=== PATIENT | female | born 1940 | race Caucasian/White ===

== ENCOUNTER → 2016-08-28 | Day surgery (SDC) | payer BC ==
[2016-08-22 10:11] VITALS: Ht 162.6 cm; Wt 97.7 kg
[~2016-08-28] VITALS: Ht 162.6 cm; Wt 97.7 kg
[~2016-08-28] MED LIST: ALBUTEROL HFA INHALER 8.5 GM INH ONE; CALC600T9 PO; FRS/40 PO; LEVA1.255 INH; LEVO137C2 PO; LIDOCAINE HCL 2% 2 ML VIAL (20MG/ML) ONE; METHYLENE BLUE 1% 1 ML VIAL ONE; MONT1TAB3 PO; PROPOFOL IV EMULSION 10 MG/ML 20 ML VIAL IV ONE; SERT-234 PO; SIMV80TA2 PO; SODIUM CHLORIDE 0.9% 500ML 500 ML IV ONE; SOTA120T PO; SYMIN160 INH; VNTHFA/IN INH; WARF5TAB7 PO; WARF7.5T4 PO; ZNTT/150 PO
[2016-08-28 12:39] VITALS: TEMP 36.6
--- NOTE | 2016-08-28 12:55 | Endo History and Physical ---
History & Physical Date of Service: Aug 28, 2016. Chief Complaint: Gastric polyp Referring Physician: Suma Isabel History of Present Illness Duodenal polyp Past Surgical History Hx Cardiac Surgery: No Hx Internal Defibrillator: No Hx Pacemaker: No Hx Abdominal Surgery: No Hx Post-Op Nausea and Vomiting: No Hx Cancer Surgery: No Hx Thoracic Surgery: No Hx Orthopedic: Yes (LEFT KNEE SURGERY) Hx Urinary Tract Surgery: No Family History None Social History Smoking Status: Never Smoker Hx Substance Use: No Hx Alcohol Use: No Allergies Coded Allergies: NO KNOWN DRUG ALLERGIES (Verified Allergy, Unknown, ., 08/22/16) Current Medications Reported Home Medications Medications Dose Route/Sig Max Daily Dose Days Date Category Jantoven (Warfarin Sodium) 7.5 Mg Tab 7.5 Mg PO QPM 06/18/16 Reported Ventolin Hfa (Albuterol) 200 Puffs/96446 Mcg Aers 2-4 Puffs INH Q6H PRN 06/18/16 Reported Symbicort 160/4.5 Inhaler (Budesonide/Formoterol Fumarate) Aero 2 Puffs INH BID 06/18/16 Reported Sotalol Hcl 120 Mg Tab 1 Tab PO BID 06/18/16 Reported Zocor (Simvastatin) 80 Mg Tab 80 Mg PO QPM 06/18/16 Reported Zoloft (Sertraline HCl) 100 Mg Tab 100 Mg PO QAM 06/18/16 Reported Singulair (Montelukast Sodium) 10 Mg Tab 10 Mg PO QAM 06/18/16 Reported Zantac (Ranitidine HCl) 150 Mg Tab 150 Mg PO BID 06/18/16 Reported Tirosint (Levothyroxine Sodium) 137 Mcg Cap 1 Cap PO QAM 06/18/16 Reported Levalbuterol (Levalbuterol Hcl) 1.25 Mg/0.5 Ml Neb 1 Dose INH Q4H PRN 06/18/16 Reported Lasix (Furosemide) 40 Mg Tab 40 Mg PO QAM 06/18/16 Reported Calcium + D (Calcium Carbonate-Vitamin D) 1 Tab Tab 1 Tab PO BID 06/18/16 Reported Vital Signs Weight (Kilograms): 97.73 Height (Feet): 5 Height (Inches): 4 Date Time Temp Pulse Resp B/P Pulse Ox O2 Delivery O2 Flow Rate FiO2 08/28/16 12:39 36.6 65 20 186/91 95 Room Air Physical Exam AAO x3 Nl s1s2 Lungs CTA Abd soft NT/ND + BS - CCE Assessment and Plan EGD/EMR polyp
--- NOTE | 2016-08-28 14:20 | Discharge Instructions ---
Endoscopy Patient Instructions Date / Procedure(s) Performed Aug 28, 2016. EGD Allergy Information Coded Allergies: NO KNOWN DRUG ALLERGIES (Verified Allergy, Unknown, ., 08/22/16) Discharge Date / Findings Aug 28, 2016. duodenal polyp ; removed Medication Instructions Stopped Medication(s): Warfarin Restart Stopped Medication(s): Reported Home Medications Medications Dose Route/Sig Max Daily Dose Days Date Category Augtoven (Warfarin Sodium) 7.5 Mg Tab 7.5 Mg PO QPM 06/18/16 Reported Ventolin Hfa (Albuterol) 200 Puffs/47346 Mcg Aers 2-4 Puffs INH Q6H PRN 06/18/16 Reported Symbicort 160/4.5 Inhaler (Budesonide/Formoterol Fumarate) Aero 2 Puffs INH BID 06/18/16 Reported Sotalol Hcl 120 Mg Tab 1 Tab PO BID 06/18/16 Reported Zocor (Simvastatin) 80 Mg Tab 80 Mg PO QPM 06/18/16 Reported Zoloft (Sertraline HCl) 100 Mg Tab 100 Mg PO QAM 06/18/16 Reported Singulair (Montelukast Sodium) 10 Mg Tab 10 Mg PO QAM 06/18/16 Reported Zantac (Ranitidine HCl) 150 Mg Tab 150 Mg PO BID 06/18/16 Reported Tirosint (Levothyroxine Sodium) 137 Mcg Cap 1 Cap PO QAM 06/18/16 Reported Levalbuterol (Levalbuterol Hcl) 1.25 Mg/0.5 Ml Neb 1 Dose INH Q4H PRN 06/18/16 Reported Lasix (Furosemide) 40 Mg Tab 40 Mg PO QAM 06/18/16 Reported Calcium + D (Calcium Carbonate-Vitamin D) 1 Tab Tab 1 Tab PO BID 06/18/16 Reported Reported Home Medications Medications Dose Route/Sig Max Daily Dose Days Date Category Augtoven (Warfarin Sodium) 7.5 Mg Tab 7.5 Mg PO QPM 06/18/16 Reported Ventolin Hfa (Albuterol) 200 Puffs/97744 Mcg Aers 2-4 Puffs INH Q6H PRN 06/18/16 Reported Symbicort 160/4.5 Inhaler (Budesonide/Formoterol Fumarate) Aero 2 Puffs INH BID 06/18/16 Reported Sotalol Hcl 120 Mg Tab 1 Tab PO BID 06/18/16 Reported Zocor (Simvastatin) 80 Mg Tab 80 Mg PO QPM 06/18/16 Reported Zoloft (Sertraline HCl) 100 Mg Tab 100 Mg PO QAM 06/18/16 Reported Singulair (Montelukast Sodium) 10 Mg Tab 10 Mg PO QAM 06/18/16 Reported Zantac (Ranitidine HCl) 150 Mg Tab 150 Mg PO BID 06/18/16 Reported Tirosint (Levothyroxine Sodium) 137 Mcg Cap 1 Cap PO QAM 06/18/16 Reported Levalbuterol (Levalbuterol Hcl) 1.25 Mg/0.5 Ml Neb 1 Dose INH Q4H PRN 06/18/16 Reported Lasix (Furosemide) 40 Mg Tab 40 Mg PO QAM 06/18/16 Reported Calcium + D (Calcium Carbonate-Vitamin D) 1 Tab Tab 1 Tab PO BID 06/18/16 Reported Restart Warfarin Thursday evening and adjust via coumadin clinic Provider Instructions Activity Restrictions - No exercising or heavy lifting for 24 hours. - Do not drink alcohol the day of the procedure. - Do not drive a car or operate machinery until the day after the procedure. - Do not make any important decisions or sign important papers in 24 hours after the procedure. Following Day: - Return to full activity which may include returning to work/school. Diet Start your diet with liquids and light foods (jello, soup, juice, toast). Then eat your usual diet if not nauseated. Treatment For Common After Affects For mild abdominal pain, bloating, or excessive gas: - Rest - Eat lightly - Lie on right side Reported Home Medications Medications Dose Route/Sig Max Daily Dose Days Date Category Jantoven (Warfarin Sodium) 7.5 Mg Tab 7.5 Mg PO QPM 06/18/16 Reported Ventolin Hfa (Albuterol) 200 Puffs/95039 Mcg Aers 2-4 Puffs INH Q6H PRN 06/18/16 Reported Symbicort 160/4.5 Inhaler (Budesonide/Formoterol Fumarate) Aero 2 Puffs INH BID 06/18/16 Reported Sotalol Hcl 120 Mg Tab 1 Tab PO BID 06/18/16 Reported Zocor (Simvastatin) 80 Mg Tab 80 Mg PO QPM 06/18/16 Reported Zoloft (Sertraline HCl) 100 Mg Tab 100 Mg PO QAM 06/18/16 Reported Singulair (Montelukast Sodium) 10 Mg Tab 10 Mg PO QAM 06/18/16 Reported Zantac (Ranitidine HCl) 150 Mg Tab 150 Mg PO BID 06/18/16 Reported Tirosint (Levothyroxine Sodium) 137 Mcg Cap 1 Cap PO QAM 06/18/16 Reported Levalbuterol (Levalbuterol Hcl) 1.25 Mg/0.5 Ml Neb 1 Dose INH Q4H PRN 06/18/16 Reported Lasix (Furosemide) 40 Mg Tab 40 Mg PO QAM 06/18/16 Reported Calcium + D (Calcium Carbonate-Vitamin D) 1 Tab Tab 1 Tab PO BID 06/18/16 Reported Follow-Up Information Follow-up with Suma Isabel as scheduled Anesthesia Information What You Should Know You have had a procedure that required some medicine to reduce anxiety and discomfort. This treatment is called moderate sedation. After receiving the treatment, you may be sleepy, but you will be able to breathe on your own. The effects of the treatment may last for several hours. Follow these instructions along with Activity/Diet recommendations noted above: * Do NOT do anything where dizziness or clumsiness would be dangerous. * Rest quietly at home today, then you can be up and about tomorrow. * Have a responsible person stay with you the rest of today. * You may have had an I.V. today. If so, you may take the dressing off later today. Recommendations Call your doctor if: * Trouble breathing * Continuous vomiting for more than 24 hours * Temperature above 101 degrees * Severe abdominal pain or bloating * Pain not relieved by pain medicine ordered * There is increased drainage or redness from any incision * A large amount of rectal bleeding greater than 2-3 tablespoons. (If you had a polyp/s removed or have hemorrhoids, a small amount of blood - from the rectum is to be expected.) * You have any unanswered questions or concerns. IN THE EVENT OF A SERIOUS EMERGENCY, GO TO THE NEAREST EMERGENCY ROOM Your discharge instructions were prepared by provider Modesto Valles. Patient Instructions Signature Page Lis Mehta Patient (or Guardian) Signature/Date: I have read and understand the instructions given to me by my caregivers. Caregiver/RN/Doctor Signature/Date: The above-named patient and/or guardian has received patient instructions on this date. + Original Patient Signature Page (only) stays with chart. Please make copy for patient.
[2016-08-28 14:45] VITALS: BP 180/88; PULSE 55; O2SAT 94
--- NOTE | 2016-08-28 14:50 | GI REPORT ---
Procedure Date: 08/28/2016 12:44 PM THIS REPORT HAS BEEN AMENDED Addendum Number: 1 Addendum Date: 08/28/2016 5:35:41 PM Despite saline/methylene blue lift, the snare would not capture the polyp and therefore biopsy to remove all endoscopically visible tissue was performed. APC or cautery was not used during this exam. Procedure: Upper GI endoscopy Indications: Duodenal tumor of uncertain behavior Medicines: Propofol per Anesthesia Complications: No immediate complications. Estimated blood loss: Minimal. Estimated Blood Loss: Estimated blood loss was minimal. Procedure: Pre-Anesthesia Assessment: - Prior to the procedure, a History and Physical was performed, and patient medications and allergies were reviewed. The patient's tolerance of previous anesthesia was also reviewed. The risks and benefits of the procedure and the sedation options and risks were discussed with the patient. All questions were answered, and informed consent was obtained. Prior Anticoagulants: The patient has taken Coumadin (warfarin), last dose was 7 days prior to procedure. ASA Grade Assessment: III - A patient with severe systemic disease. After reviewing the risks and benefits, the patient was deemed in satisfactory condition to undergo the procedure. After obtaining informed consent, the endoscope was passed under direct vision. Throughout the procedure, the patient's blood pressure, pulse, and oxygen saturations were monitored continuously. The Scope was introduced through the mouth, and advanced to the third part of duodenum. The scope was introduced through the mouth, and advanced to the second part of duodenum. The upper GI endoscopy was accomplished without difficulty. The patient tolerated the procedure well. Findings: The examined esophagus was normal. Diffuse mild inflammation characterized by erythema was found in the entire examined stomach. A single 10 mm sessile polyp with no bleeding was found in the third part of the duodenum. Area was successfully injected with 10 mL saline with methylene blue for a lift polypectomy. The polyp was removed with a cold biopsy forceps. Resection and retrieval were complete. Area was successfully injected with 6 mL of a 1:20,000 solution of epinephrine for hemostasis. To repair the defect, the tissue edges were approximated and three hemostatic clips were successfully placed (MR conditional). Closure of the defect was successful. There was no bleeding at the end of the procedure. Impression: - Normal esophagus. - Gastritis. - A single duodenal polyp. Resected and retrieved. Injected. Clips (MR conditional) were placed. Recommendation: - Discharge patient to home (ambulatory). - Patient has a contact number available for emergencies. The signs and symptoms of potential delayed complications were discussed with the patient. Return to normal activities tomorrow. Written discharge instructions were provided to the patient. - Clear liquid diet today. - Resume Coumadin (warfarin) at prior dose in 3 days. Refer to [facility]madin Clinic for further adjustment of therapy. - Await pathology results. - Return to referring physician as previously scheduled. MD Modesto Moralez MD 08/28/2016 2:49:03 PM This report has been signed electronically. Note Initiated On: 08/28/2016 12:44 PM MD Modesto Moralez MD 08/28/2016 5:38:02 PM This report has been signed electronically.
--- NOTE | 2016-08-28 16:56 | Anesthesiology Progress Note ---
Anesthesia Post Op Note Date & Time Aug 28, 2016 at 16:55 Vital Signs Pain Intensity: 0 Vital Signs Past 12 Hours Date Time Temp Pulse Resp B/P Pulse Ox O2 Delivery O2 Flow Rate FiO2 08/28/16 14:45 55 20 180/88 94 Room Air 08/28/16 14:30 57 20 182/80 95 Room Air 08/28/16 14:13 58 20 184/86 97 Room Air 08/28/16 12:39 36.6 65 20 186/91 95 Room Air Notes Mental Status: alert / awake / arousable, participated in evaluation Pt Amnestic to Procedure: Yes Nausea / Vomiting: adequately controlled Pain: adequately controlled Airway Patency, RR, SpO2: stable & adequate BP & HR: stable & adequate Hydration State: stable & adequate Anesthetic Complications: no major complications apparent
== END | disposition home or self-care (01) ==
LOC: C.GI 12:12
PROVIDERS: ATTEND Internal Medicine Gastroenterology
DX: D13.2 Benign neoplasm of duodenum (principal); K29.70 Gastritis, unspecified, without bleeding; Z98.890 Other specified postprocedural states

== ENCOUNTER → 2017-04-16 | Day surgery (SDC) | payer BC ==
[2017-04-02 11:21] VITALS: Ht 162.6 cm; Wt 97.7 kg
[~2017-04-16] VITALS: Ht 162.6 cm; Wt 97.7 kg
[~2017-04-16] MED LIST changes: +ALBUT/IPRATROP 3MG/0.5MG NEB 3 ML VIAL INH PRN; -ALBUTEROL HFA INHALER 8.5 GM INH ONE; -METHYLENE BLUE 1% 1 ML VIAL ONE
[2017-04-16 12:43] VITALS: O2SAT 94
[2017-04-16 12:50] LABS: INR 1.1 (0.9-1.1); PROTHROMBIN TIME (PATIENT) 12.2 SECONDS (9.0-12.0)
--- NOTE | 2017-04-16 12:56 | Endo History and Physical ---
History & Physical Date of Service: Apr 16, 2017. Chief Complaint: f/u of duodenal polyp s/p EMR 08/28/16, hx of anemia Referring Physician: Dr. Suma Isabel History of Present Illness Pt with EMR of duodenal polyp 08/28/16 for f/u EGD. No complaints. Past Surgical History Hx Cardiac Surgery: Yes (CARDIOVERSION) Hx Internal Defibrillator: No Hx Pacemaker: No Hx Abdominal Surgery: Yes (TUBAL LIGATION) Hx of Implantable Prosthesis: No Hx Post-Op Nausea and Vomiting: No Hx Cancer Surgery: No Hx Thoracic Surgery: No Hx Orthopedic: Yes (LT KNEE SURGERY) Hx Urinary Tract Surgery: No Family History None Social History Smoking Status: Never Smoker Hx Substance Use: No Hx Alcohol Use: No Allergies Coded Allergies: NO KNOWN DRUG ALLERGIES (Verified Allergy, Unknown, ., 04/02/17) Current Medications Reported Home Medications Medications Dose Route/Sig Max Daily Dose Days Date Category Dose Instructions Jantoven (Warfarin Sodium) 5 Mg Tab 5 Mg PO 2XWK 04/02/17 Reported TUES, FRI Jantoven (Warfarin Sodium) 7.5 Mg Tab 7.5 Mg PO 5XWK 06/18/16 Reported SUN,MON,WED,THURS,SAT Ventolin Hfa (Albuterol) 200 Puffs/30919 Mcg Aers 2-4 Puffs INH Q6H PRN 06/18/16 Reported Symbicort 160/4.5 Inhaler (Budesonide/Formoterol Fumarate) Aero 2 Puffs INH BID 06/18/16 Reported Sotalol Hcl 120 Mg Tab 1 Tab PO BID 06/18/16 Reported Zocor (Simvastatin) 80 Mg Tab 80 Mg PO QPM 06/18/16 Reported Zoloft (Sertraline HCl) 100 Mg Tab 100 Mg PO QAM 06/18/16 Reported Singulair (Montelukast Sodium) 10 Mg Tab 10 Mg PO QAM 06/18/16 Reported Zantac (Ranitidine HCl) 150 Mg Tab 150 Mg PO BID 06/18/16 Reported Tirosint (Levothyroxine Sodium) 137 Mcg Cap 1 Cap PO QAM 06/18/16 Reported Levalbuterol (Levalbuterol Hcl) 1.25 Mg/0.5 Ml Neb 1 Dose INH Q4H PRN 06/18/16 Reported Lasix (Furosemide) 40 Mg Tab 40 Mg PO QAM 06/18/16 Reported Calcium + D (Calcium Carbonate-Vitamin D) 1 Tab Tab 1 Tab PO BID 06/18/16 Reported Vital Signs Weight (Kilograms): 97.73 Height (Feet): 5 Height (Inches): 4 Date Time Temp Pulse Resp B/P (MAP) Pulse Ox O2 Delivery O2 Flow Rate FiO2 04/16/17 12:43 15 94 Room Air 04/16/17 12:28 36.7 84 20 136/91 (106) 94 Room Air Review of Systems Respiratory: No shortness of breath Cardiovascular: No chest pain Physical Exam General Appearance: WD/WN, no apparent distress Respiratory/Chest: Respiratory effort: no dyspnea, good air movement Auscultation: breath sounds normal Cardiovascular: Heart Auscultation: no murmurs Abdomen: Bowel Sounds: normal Inspection & Palpation: soft, non-distended, no tenderness, guarding & rebound Assessment and Plan For EGD today.
--- NOTE | 2017-04-16 13:30 | Progress Note ---
Progress Note Date of Service Apr 16, 2017. Progress Note Pt awake and alert post EGD. No complaints. Went over results of EGD with her and .
--- NOTE | 2017-04-16 13:43 | Anesthesiology Progress Note ---
Anesthesia Post Op Note Date & Time Apr 16, 2017 at 13:43 Vital Signs Pain Intensity: 0 Vital Signs Past 12 Hours Date Time Temp Pulse Resp B/P (MAP) Pulse Ox O2 Delivery O2 Flow Rate FiO2 04/16/17 13:22 78 16 122/64 (83) 94 Room Air 04/16/17 12:43 15 94 Room Air 04/16/17 12:28 36.7 84 20 136/91 (106) 94 Room Air Notes Mental Status: alert / awake / arousable, participated in evaluation Pt Amnestic to Procedure: Yes Nausea / Vomiting: adequately controlled Pain: adequately controlled Airway Patency, RR, SpO2: stable & adequate BP & HR: stable & adequate Hydration State: stable & adequate Anesthetic Complications: no major complications apparent
--- NOTE | 2017-04-16 13:48 | Discharge Instructions ---
Endoscopy Patient Instructions Date / Procedure(s) Performed Apr 16, 2017. EGD Allergy Information Coded Allergies: NO KNOWN DRUG ALLERGIES (Verified Allergy, Unknown, ., 04/02/17) Discharge Date / Findings Apr 16, 2017. gastritis, large hiatal hernia, enlarged folds in duodenum scar versus residual polyp Medication Instructions Stopped Medication(s): stopped Coumadin 6 days ago Restart Stopped Medication(s): restart coumadin today Provider Instructions Activity Restrictions - No exercising or heavy lifting for 24 hours. - Do not drink alcohol the day of the procedure. - Do not drive a car or operate machinery until the day after the procedure. - Do not make any important decisions or sign important papers in 24 hours after the procedure. Following Day: - Return to full activity which may include returning to work/school. Diet Start your diet with liquids and light foods (jello, soup, juice, toast). Then eat your usual diet if not nauseated. Treatment For Common After Affects For mild abdominal pain, bloating, or excessive gas: - Rest - Eat lightly - Lie on right side Follow-Up Information Follow-up with Dr. Suma Isabel as scheduled Anesthesia Information What You Should Know You have had a procedure that required some medicine to reduce anxiety and discomfort. This treatment is called moderate sedation. After receiving the treatment, you may be sleepy, but you will be able to breathe on your own. The effects of the treatment may last for several hours. Follow these instructions along with Activity/Diet recommendations noted above: * Do NOT do anything where dizziness or clumsiness would be dangerous. * Rest quietly at home today, then you can be up and about tomorrow. * Have a responsible person stay with you the rest of today. * You may have had an I.V. today. If so, you may take the dressing off later today. Recommendations Call your doctor if: * Trouble breathing * Continuous vomiting for more than 24 hours * Temperature above 101 degrees * Severe abdominal pain or bloating * Pain not relieved by pain medicine ordered * There is increased drainage or redness from any incision * A large amount of rectal bleeding greater than 2-3 tablespoons. (If you had a polyp/s removed or have hemorrhoids, a small amount of blood - from the rectum is to be expected.) * You have any unanswered questions or concerns. IN THE EVENT OF A SERIOUS EMERGENCY, GO TO THE NEAREST EMERGENCY ROOM Your discharge instructions were prepared by provider Maurice Cruz. Patient Instructions Signature Page Lis Hoalfredo Patient (or Guardian) Signature/Date: I have read and understand the instructions given to me by my caregivers. Caregiver/RN/Doctor Signature/Date: The above-named patient and/or guardian has received patient instructions on this date. + Original Patient Signature Page (only) stays with chart. Please make copy for patient.
[2017-04-16 13:55] VITALS: BP 139/95; PULSE 81; O2SAT 94
--- NOTE | 2017-04-17 00:14 | GI REPORT ---
Procedure Date: 04/16/2017 12:54 PM Procedure: Upper GI endoscopy Indications: Surveillance procedure duodenal polyp s/p EMR 08/2016, Iron deficiency anemia Medicines: Monitored Anesthesia Care Complications: No immediate complications. Estimated blood loss: Minimal. Estimated Blood Loss: Estimated blood loss was minimal. Procedure: Pre-Anesthesia Assessment: - The risks and benefits of the procedure and the sedation options and risks were discussed with the patient. All questions were answered and informed consent was obtained. - Patient identification and proposed procedure were verified prior to the procedure by the physician, the nurse and the rap artist. The procedure was verified in the procedure room. After obtaining informed consent, the endoscope was passed under direct vision. Throughout the procedure, the patient's blood pressure, pulse, and oxygen saturations were monitored continuously. The On-site loaner was introduced through the mouth, and advanced to the third part of duodenum. The upper GI endoscopy was accomplished without difficulty. The patient tolerated the procedure well. Procedure and risks explained to patient which include but not limited to medication reaction, bleeding, perforation, aspiration , and missed lesions. Judicious gas insufflation was used and gas removal done on the way out. The lumen was always visualized when advancing the scope. Prep was good. Washes and suctioning used as needed to get good visualization of the mucosa. Retroflexion to look at the fundus and cardia of the stomach and GE junction was done. Findings: The Z-line was regular and was found 38 cm from the incisors. An 8 cm hiatus hernia was present. Localized moderate inflammation characterized by congestion (edema) and erythema was found in the gastric antrum. Biopsies were taken with a cold forceps for histology. Estimated blood loss was minimal. Localized moderate mucosal changes characterized by enlagement of folds with splits in mucosa were found in the third part of the duodenum. Perhaps scar tissue from previous resection. Biopsies were taken with a cold forceps for histology. Estimated blood loss was minimal. The exam was otherwise without abnormality. Impression: - Z-line regular, 38 cm from the incisors. - 8 cm hiatus hernia. - Chronic nodular gastritis. Biopsied. - Mucosal changes in the duodenum enlarged folds perhaps scar tissue from previous resection. Biopsied. - The examination was otherwise normal. Recommendation: - Discharge patient to home (ambulatory). - Return to GI office PRN. - Repeat the upper endoscopy for surveillance based on pathology results. - Await pathology results. Maurice Cruz M.D. Maurice Cruz MD 04/16/2017 1:23:33 PM This report has been signed electronically. Note Initiated On: 04/16/2017 12:54 PM I attest to the content of the Intraoperative Record and orders documented therein, exceptions below
== END | disposition home or self-care (01) ==
LOC: C.GI 11:42
PROVIDERS: ATTEND Internal Medicine Gastroenterology
DX: K31.7 Polyp of stomach and duodenum (principal); D50.9 Iron deficiency anemia, unspecified; K29.80 Duodenitis without bleeding; K44.9 Diaphragmatic hernia without obstruction or gangrene; K29.70 Gastritis, unspecified, without bleeding; Z98.51 Tubal ligation status; Z79.01 Long term (current) use of anticoagulants; J44.9 Chronic obstructive pulmonary disease, unspecified; E78.5 Hyperlipidemia, unspecified; I48.91 Unspecified atrial fibrillation; K21.9 Gastro-esophageal reflux disease without esophagitis; M19.90 Unspecified osteoarthritis, unspecified site; E03.9 Hypothyroidism, unspecified; F32.9 Major depressive disorder, single episode, unspecified; F41.9 Anxiety disorder, unspecified; E66.9 Obesity, unspecified; I35.0 Nonrheumatic aortic (valve) stenosis; I34.0 Nonrheumatic mitral (valve) insufficiency

== ENCOUNTER → 2017-04-29 | Outpatient (CLI) | payer BC ==
[~2017-04-29] MED LIST changes: -ALBUT/IPRATROP 3MG/0.5MG NEB 3 ML VIAL INH PRN; -LIDOCAINE HCL 2% 2 ML VIAL (20MG/ML) ONE; -PROPOFOL IV EMULSION 10 MG/ML 20 ML VIAL IV ONE; -SODIUM CHLORIDE 0.9% 500ML 500 ML IV ONE
--- NOTE | 2017-04-29 13:05 | DIAGNOSTIC IMAGING REPORT ---
CHEST 2 VIEWS ROUTINE HISTORY: RESTRICTIVE LUNG DISEASE COMPARISON: Chest 11/30/2013. FINDINGS: Stable calcified granuloma within the right lung apex. No pleural effusions. No pneumothorax. The heart remains mildly enlarged. Large hiatus hernia, unchanged. No new focal lung consolidations to suggest pneumonia. No evidence for pulmonary edema. Mild chronic interstitial thickening persists. Stable mid thoracic spine vertebroplasty. IMPRESSION: 1. No significant change compared to the prior study. 2. Large hiatus hernia. 3. Mild chronic interstitial thickening persists. Electronically signed by: Harry Coronel M.D. 04/29/2017 1:03 PM Dictated Date/Time: 04/29/2017 1:02 PM
== END | disposition home or self-care (01) ==
LOC: C.RAD1850 12:22
PROVIDERS: ATTEND Physician Assistant
DX: J98.4 Other disorders of lung (principal)

== ENCOUNTER → 2017-10-15 | Outpatient (CLI) | payer BC ==
[~2017-10-15] MED LIST changes: +RANI150T85 PO; -ZNTT/150 PO
[2017-10-15 18:00] LABS: INR 4.1 (0.9-1.1)
== END | disposition home or self-care (01) ==
LOC: C.LABMFLN 14:17
PROVIDERS: ATTEND Family Medicine
DX: I48.0 Paroxysmal atrial fibrillation (principal)

== ENCOUNTER 2017-11-28 17:09 | Inpatient (IN) | payer BC, OTHER ==
[~2017-11-28] VITALS: Ht 162.6 cm; Wt 98.5 kg
[2017-11-28] MEDS ORDERED: ALBUT/IPRATROP 3MG/0.5MG NEB 3 ML VIAL INH STA ×3 (17:26→18:55)
[2017-11-28] MEDS ORDERED: METHYLPREDNISOLONE 125 MG VIAL IV STA (17:26)
[2017-11-28] MEDS ORDERED: SODIUM CHLORIDE 0.9% 1000ML 1,000 ML IV STA (17:26)
--- NOTE | 2017-11-28 17:32 | EMERGENCY ROOM VISIT NOTE ---
History Report prepared by Pipo: Nova Henley Under the Supervision of: Dr. Thee Rangel M.D. 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 She states she is having an increasingly difficult time breathing and rates and states she is in moderate discomfort. She denies any fevers or recent long car or plane rides. She also denies coughing up any blood. Her inhalers have not been helping her. She also notes she is on Coumadin because she has Afib. 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 She notes she has a history of COPD and asthma but has never been at a treatment facility. No history of intubation or ICU admission. She does not wear oxygen. 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 A total of ten systems were reviewed and were otherwise negative. Family History No pertinent family history Social History Smoking Status: Never Smoker Smokeless Tobacco Use: Unknown Occupation Status: retired Current/Historical Medications Scheduled Budesonide/Formoterol Fumarate (Symbicort 160/4.5 Inhaler ), 2 PUFFS INH BID Calcium Carbonate-Vitamin D (Calcium + D), 1 TAB PO BID Furosemide (Lasix), 40 MG PO QAM Levothyroxine Sodium (Tirosint), 1 CAP PO QAM Montelukast Sodium (Singulair), 10 MG PO QAM Ranitidine (Zantac), 150 MG PO BID Sertraline (Zoloft), 100 MG PO QAM Simvastatin (Zocor), 80 MG PO QPM Sotalol Hcl (Sotalol Hcl), 1 TAB PO BID Warfarin Sod (Jantoven), 7.5 MG PO UD Warfarin Sod (Jantoven), 5 MG PO UD Scheduled PRN Albuterol Hfa (Ventolin Hfa), 2-4 PUFFS INH Q6H PRN for Shortness of Breath Levalbuterol Hcl (Levalbuterol), 1 DOSE INH Q4H PRN for Shortness of Breath Allergies Coded Allergies: NO KNOWN DRUG ALLERGIES (Verified Allergy, Unknown, ., 11/28/17) Physical Exam Vital Signs Date Time Temp Pulse Resp B/P (MAP) Pulse Ox O2 Delivery O2 Flow Rate FiO2 11/28/17 18:39 128 22 95 Nebulizer 8.0 11/28/17 18:09 110 21 97 Nebulizer 8.0 11/28/17 17:45 88 Room Air 11/28/17 17:39 131 28 92 11/28/17 17:26 109 11/28/17 17:10 37.5 117 24 163/96 93 Physical Exam Physical Exam GENERAL: She is oriented to person, place, and time. She appears well- developed and well-nourished. She does not appear distressed. ____ HENT: Exam performed. Head: Normocephalic and atraumatic. Right Ear: External ear normal. No mastoid tenderness. Left Ear: External ear normal. No mastoid tenderness. Mouth/Throat: The oropharynx is clear and moist. No trismus in the jaw. No dental abscesses or uvula swelling. No oropharyngeal exudate or tonsillar abscesses. ____ EYES: Conjunctivae and EOM are normal. Pupils are equal, round, and reactive to light. Right eye exhibits no discharge. Left eye exhibits no discharge. No scleral icterus. ____ NECK: Normal range of motion. Neck supple. No JVD present. No spinous process tenderness present. No carotid bruit present. No rigidity. No tracheal deviation and normal range of motion present. No Brudzinski's sign and no Kernig 's sign noted. ____ CV: Tachycardic rate, regular rhythm. Normal heart sounds and intact distal pulses. There is no peripheral edema. Palpable radial pulses bue. Heart is tachycardic. PULM/CHEST: Diffuse expiratory wheezes out bilaterally Chest Wall: She exhibits no tenderness. ____ ABD: The abdomen is soft. Bowel sounds are normal. She has no distension. No mass is present. There is no tenderness. There is no rebound, no guarding, no Dsouza's sign and no tenderness at McBurney's point. Rovsig negative MUSC/SKEL: Normal range of motion. There is no peripheral edema, tenderness or deformity. LYMPH: No cervical adenopathy. ____ NEURO: She is alert and oriented to person, place, and time. She has normal strength. No cranial nerve deficit or sensory deficit. Coordination and gait normal. GCS eye subscore is 4. GCS verbal subscore is 5. GCS motor subscore is 6. Cerebellar tests wnl. ____ SKIN: Skin is warm and dry. She is not diaphoretic. ____ PSYCH: She has a normal mood and affect. Her behavior is normal. Judgment and thought content normal. ____ Medical Decision & Procedures ER Provider Diagnostic Interpretation: Radiology results as stated below per my review and radiologist interpretation: CHEST ONE VIEW PORTABLE CLINICAL HISTORY: 77 years-old Female presenting with wheezing gay. TECHNIQUE: Portable upright AP view of the chest was obtained. COMPARISON: 04/29/2017. FINDINGS: Atherosclerosis of aortic arch. Cardiac silhouette enlarged. Vascular prominence. Lungs and pleural spaces clear. Kyphoplasty changes suggested in the mid thoracic spine. Large hiatal hernia. IMPRESSION: 1. Cardiomegaly with mild volume overload. No cristian pulmonary edema. Electronically signed by: Jose Francisco Kamara M.D. 11/28/2017 6:08 PM Dictated Date/Time: 11/28/2017 6:07 PM Laboratory Results 11/28/17 18:00 Red Blood Count 4.21, Mean Corpuscular Volume 85.7, Mean Corpuscular Hemoglobin 27.6, Mean Corpuscular Hemoglobin Concent 32.1, Mean Platelet Volume 9.3, Neutrophils (%) (Auto) 84.0, Lymphocytes (%) (Auto) 9.8, Monocytes (%) (Auto) 5.1, Eosinophils (%) (Auto) 0.5, Basophils (%) (Auto) 0.3, Neutrophils # (Auto) 7.68, Lymphocytes # (Auto) 0.90, Monocytes # (Auto) 0.47, Eosinophils # (Auto) 0.05, Basophils # (Auto) 0.03 11/28/17 18:00 Test 11/28/17 18:00 11/28/17 18:15 White Blood Count 9.16 K/uL (4.8-10.8) Red Blood Count 4.21 M/uL (4.2-5.4) Hemoglobin 11.6 g/dL (12.0-16.0) Hematocrit 36.1 % (37-47) Mean Corpuscular Volume 85.7 fL (80-100) Mean Corpuscular Hemoglobin 27.6 pg (25-34) Mean Corpuscular Hemoglobin Concent 32.1 g/dl (32-36) Platelet Count 238 K/uL (130-400) Mean Platelet Volume 9.3 fL (7.4-10.4) Neutrophils (%) (Auto) 84.0 % Lymphocytes (%) (Auto) 9.8 % Monocytes (%) (Auto) 5.1 % Eosinophils (%) (Auto) 0.5 % Basophils (%) (Auto) 0.3 % Neutrophils # (Auto) 7.68 K/uL (1.4-6.5) Lymphocytes # (Auto) 0.90 K/uL (1.2-3.4) Monocytes # (Auto) 0.47 K/uL (0.11-0.59) Eosinophils # (Auto) 0.05 K/uL (0-0.5) Basophils # (Auto) 0.03 K/uL (0-0.2) RDW Standard Deviation 57.2 fL (36.4-46.3) RDW Coefficient of Variation 18.1 % (11.5-14.5) Immature Granulocyte % (Auto) 0.3 % Immature Granulocyte # (Auto) 0.03 K/uL (0.00-0.02) Prothrombin Time 21.4 SECONDS (9.0-12.0) Prothromb Time International Ratio 2.1 (0.9-1.1) Activated Partial Thromboplast Time 31.2 SECONDS (21.0-31.0) Partial Thromboplastin Ratio 1.2 Venous Blood pH 7.45 (7.36-7.41) Venous Blood Partial Pressure CO2 38 mmHg (38.0-50.0) Venous Blood Partial Pressure O2 44 mmHg Venous Blood HCO3 26 mmol/L Venous Blood Oxygen Saturation 79.5 % Venous Blood Base Excess 2.0 mEq/L Anion Gap 5.0 mmol/L (3-11) Est Creatinine Clear Calc Drug Dose 65.5 ml/min Estimated GFR () 77.1 Estimated GFR (Non- 66.6 BUN/Creatinine Ratio 24.0 (10-20) Calcium Level 8.9 mg/dl (8.5-10.1) Influenza Type A Antigen Neg for Influ A (NEG) Influenza Type B Antigen Neg for Influ B (NEG) Laboratory results reviewed by me Medications Administered Medications (Trade) Dose Ordered Sig/Collin Route Start Time Stop Time Status Last Admin Dose Admin Sodium Chloride 1,000 ml @ 125 mls/hr Q8H STAT IV 11/28/17 17:26 11/29/17 01:25 11/28/17 18:04 125 MLS/HR Albuterol/ Ipratropium (Duoneb) 3 ml NOW STAT INH 11/28/17 17:26 11/28/17 17:29 DC 11/28/17 18:04 3 ML Methylprednisolone Sodium Succinate (Solu-Medrol IV) 125 mg NOW STAT IV 11/28/17 17:26 11/28/17 17:29 DC 11/28/17 18:04 125 MG Albuterol/ Ipratropium (Duoneb) 3 ml ONE STAT INH 11/28/17 18:21 11/28/17 18:22 DC 11/28/17 18:21 3 ML Albuterol/ Ipratropium (Duoneb) 3 ml NOW STAT INH 11/28/17 18:55 11/28/17 18:56 DC 11/28/17 19:06 3 ML ECG Per My Interpretation Indication: SOB/dyspnea Rate (beats per minute): 119 Rhythm: atrial fibrillation Findings: other (QRS and QTC all within normal limits, no ST elevation or depression ) ED Course 1723: The patient was evaluated in room C6. A complete history and physical exam was performed. Patient's was satting 88% on room air. She is immediately hooked up to the cardiac cath technician, continuous pulse ox IV access was obtained and started on oxygen. Breathing treatments as well as steroids immediately ordered. 1726: Solu-Medrol 125 mg IV Duoneb 3 ml INH Sodium Chloride 1000 ml @ 125 mls/hr IV 1821: Duoneb 3 ml INH 1840: Patient reports she feels much better after breathing treatments. Oxygen saturation stable on room air. Labs within normal limits including a therapeutic INR of 2.1. Chest x-ray within normal limits. The patient continues to wheeze on auscultation her lungs. Patient will be admitted by [facility] Hospitalist. Medical Decision 1723: The patient was evaluated in room C6. A complete history and physical exam was performed. Patient's was satting 88% on room air. She is immediately hooked up to the cardiac cath technician, continuous pulse ox IV access was obtained and started on oxygen. Breathing treatments as well as steroids immediately ordered. 1726: Solu-Medrol 125 mg IV Duoneb 3 ml INH Sodium Chloride 1000 ml @ 125 mls/hr IV 1821: Duoneb 3 ml INH 1840: Patient reports she feels much better after breathing treatments. Oxygen saturation stable on room air. Labs within normal limits including a therapeutic INR of 2.1. Chest x-ray within normal limits. The patient continues to wheeze on auscultation her lungs. Patient will be admitted by [facility] Hospitalist. Medication Reconcilliation Current Medication List: was personally reviewed by me Blood Pressure Screening Patient's blood pressure: Elevated blood pressure Blood pressure disposition: Elevated BP felt to be situational Impression Primary Impression: Hypoxia Additional Impression: COPD exacerbation Critical Care I have personally spent greater than 53 minutes of critical care time in the direct management of this patient. This includes bedside care, interpretation of diagnostic studies, and testing, discussion with consultants, patient, and family members, and other required patient management activities. This 53 minutes is in excess of all separately billable procedures. Scribe Attestation The scribe's documentation has been prepared under my direction and personally reviewed by me in its entirety. I confirm that the note above accurately reflects all work, treatment, procedures, and medical decision making performed by me. Departure Information Dispostion Being Evaluated By Hospitalist ([facility] Hospitalist ) Suma Velasquez M.D. (PCP) Patient Instructions My [facility] Problem Qualifiers
[2017-11-28 18:10] LABS: BASO % 0.3 %; BASO ABS # 0.03 K/uL (0-0.2); EOS % 0.5 %; EOS ABS # 0.05 K/uL (0-0.5); HEMATOCRIT 36.1 % (37-47); HEMOGLOBIN 11.6 g/dL (12.0-16.0); IG# 0.03 K/uL (0.00-0.02); LYMPH % 9.8 %; MEAN CELL VOLUME 85.7 fL (80-100); MEAN CORPUSCULAR HEMOGLOBIN 27.6 pg (25-34); MEAN CORPUSCULAR HGB CONC 32.1 g/dl (32-36); MEAN PLATELET VOLUME 9.3 fL (7.4-10.4); MONO % 5.1 %; MONO ABS # 0.47 K/uL (0.11-0.59); NEUT ABS # 7.68 K/uL (1.4-6.5); PLATELET COUNT 238 K/uL (130-400); RED CELL DISTRIBUTION WIDTH CV 18.1 % (11.5-14.5); RED CELL DISTRIBUTION WIDTH SD 57.2 fL (36.4-46.3); WHITE BLOOD COUNT 9.16 K/uL (4.8-10.8)
--- NOTE | 2017-11-28 18:10 | DIAGNOSTIC IMAGING REPORT ---
CHEST ONE VIEW PORTABLE CLINICAL HISTORY: 77 years-old Female presenting with wheezing gay. TECHNIQUE: Portable upright AP view of the chest was obtained. COMPARISON: 04/29/2017. FINDINGS: Atherosclerosis of aortic arch. Cardiac silhouette enlarged. Vascular prominence. Lungs and pleural spaces clear. Kyphoplasty changes suggested in the mid thoracic spine. Large hiatal hernia. IMPRESSION: 1. Cardiomegaly with mild volume overload. No cristian pulmonary edema. Electronically signed by: Jose Francisco Kamara M.D. 11/28/2017 6:08 PM Dictated Date/Time: 11/28/2017 6:07 PM
[2017-11-28 18:20] LABS: INR 2.1 (0.9-1.1); PTT PATIENT 31.2 SECONDS (21.0-31.0)
[2017-11-28 18:27] LABS: CALCIUM 8.9 mg/dl (8.5-10.1); CREATININE 0.85 mg/dl (0.60-1.20)
[2017-11-28 18:50] LABS: INFLUENZA B ANTIGEN Neg for Influ B (NEG)
[2017-11-28] MEDS ORDERED: MAGNESIUM HYDROXIDE SUSP 30 ML UDC PO PRN (20:00)
[2017-11-28] MEDS ORDERED: ONDANSETRON INJ 2 MG/ML 2 ML VIAL IV PRN (20:00)
[2017-11-28] MEDS ORDERED: POLYETHYLENE (MIRALAX) 17 GM PACK PO PRN (20:00)
[2017-11-28] MEDS ORDERED: ALUMINUM/MAGNESIUM/SIMETH (MAALOX MAX) 30 ML UDC PO PRN (20:00)
[2017-11-28] MEDS ORDERED: ACETAMINOPHEN 325 MG TAB PO PRN (20:00)
--- NOTE | 2017-11-28 20:27 | History and Physical ---
History & Physical Date & Time of Service: Nov 28, 2017 at 20:27 Chief Complaint: Trouble Breathing Primary Care Physician: Suma Isabel M.D. History of Present Illness Source: patient, family 77 F with COPD, Asthma, Paroxysmal Afib on Coumadin presents with worsening SOB x 5 days, productive cough. She denies fevers chills, chest pain, palpitation , lightheadedness . She has been nebulizer treatments 3x/day without adequate relief. She was seen by [facility] for 1 wk h/o cough attributed acute asthma exacerbation. She was started on prednisone, doxycycline. She reports orthopnea at home, PND. She denies history of CHF. She denies N/V, abdominal pain, diarrhea. In the ED She has been tachycardic , EKG showing afib. She desaturated down to 88 at lowest . She imprvoed with supplemental oxygen . She received , duoneb x3 bolus of IV Solumedrol 125 mg IV, 1 L IV fluids SOB cough: secondary to COPD exacerbation vs Asthma - Start IV solumedrol 40 q8 - Start empiric Levaquin, Ceftriaxone - Atrovent/Xopenex nebs - guaifenesin - codeine cough syrup - sputum cx gram stain pendin - blood cx pending Paroxysmal Atrial Fibrillation, Tachycardia EKG consistent with Afib currently tachycardia likely associated with multiple nebulizer treatment switch from Duoneb to xopenex Atrovent on admission INR 2.1, Continue Coumadin c/w Sotalol Depression - Sertraline daily 100 qam HLD - c/w Simvastatin 80 mg daily Hypothyroidism - Synthroid GERD -Ranitidine DVT PPX - already on Coumadin code status: FULL no MECH Vent Past Medical/Surgical History PastMedHx: COPD Asthma Paroxysmal Afib Hypertension Hiatal hernia Depression GERD Aortic Stenosis Mitral Regurgiation Hyperlipidemia SurgHx: Back Surgery Laporoscopic Chooecystecomy Percutanoeus Vertebral Augmentatuin Kyphopasty Tubal ligation Family History No pertinent family history Social History Smoking Status: Never Smoker Smokeless Tobacco Use: Unknown Alcohol Use: none Drug Use: none Marital Status: Housing status: lives with family Occupational Status: retired Immunizations History of Influenza Vaccine: Unknown History of Tetanus Vaccine?: Unknown History of Pneumococcal: Unknown History of Hepatitis B Vaccine: Unknown Allergies Coded Allergies: NO KNOWN DRUG ALLERGIES (Verified Allergy, Unknown, ., 11/28/17) Home Medications Scheduled Budesonide/Formoterol Fumarate (Symbicort 160/4.5 Inhaler ), 2 PUFFS INH BID Calcium Carbonate-Vitamin D (Calcium + D), 1 TAB PO BID Furosemide (Lasix), 40 MG PO QAM Levothyroxine Sodium (Tirosint), 1 CAP PO QAM Montelukast Sodium (Singulair), 10 MG PO QAM Ranitidine (Zantac), 150 MG PO BID Sertraline (Zoloft), 100 MG PO QAM Simvastatin (Zocor), 80 MG PO QPM Sotalol Hcl (Sotalol Hcl), 1 TAB PO BID Warfarin Sod (Jantoven), 7.5 MG PO UD Warfarin Sod (Jantoven), 5 MG PO UD Scheduled PRN Albuterol Hfa (Ventolin Hfa), 2-4 PUFFS INH Q6H PRN for Shortness of Breath Levalbuterol Hcl (Levalbuterol), 1 DOSE INH Q4H PRN for Shortness of Breath Review of Systems Constitutional: No fever, No chills, No weakness ENT: No nasal symptoms, No sore throat Respiratory: + cough, + sputum, + wheezing, + shortness of breath, No hemoptysis Abdomen: No pain, No nausea, No vomiting, No diarrhea, No constipation Genitourinary - Female: No dysuria, No urinary frequency, No urinary urgency Integumentary: No rash, No itch Physical Exam Vital Signs Date Time Temp Pulse Resp B/P (MAP) Pulse Ox O2 Delivery O2 Flow Rate FiO2 11/28/17 18:39 128 22 95 Nebulizer 8.0 11/28/17 18:09 110 21 97 Nebulizer 8.0 11/28/17 17:45 88 Room Air 11/28/17 17:39 131 28 92 11/28/17 17:26 109 11/28/17 17:10 37.5 117 24 163/96 93 General Appearance: WD/WN, no apparent distress Head: normocephalic, atraumatic Eyes: normal inspection, PERRL, EOMI ENT: pharynx normal Neck: supple, no adenopathy, trachea midline Cardiovascular: no edema, no murmur, + tachycardia, + irregularly irregular Abdomen/GI: normal bowel sounds, non tender, soft, no organomegaly, no pulsatile mass Back: normal range of motion Extremities/Musculoskelatal: no calf tenderness, no pedal edema Neurologic/Psych: alert, normal mood/affect, normal reflexes, oriented x 3 Skin: normal color, warm/dry Diagnostics Laboratory Results Results Past 24 Hours Test 11/28/17 18:00 11/28/17 18:15 Range/Units White Blood Count 9.16 4.8-10.8 K/uL Red Blood Count 4.21 4.2-5.4 M/uL Hemoglobin 11.6 12.0-16.0 g/dL Hematocrit 36.1 37-47 % Mean Corpuscular Volume 85.7 80-100 fL Mean Corpuscular Hemoglobin 27.6 25-34 pg Mean Corpuscular Hemoglobin Concent 32.1 32-36 g/dl Platelet Count 238 130-400 K/uL Mean Platelet Volume 9.3 7.4-10.4 fL Neutrophils (%) (Auto) 84.0 % Lymphocytes (%) (Auto) 9.8 % Monocytes (%) (Auto) 5.1 % Eosinophils (%) (Auto) 0.5 % Basophils (%) (Auto) 0.3 % Neutrophils # (Auto) 7.68 1.4-6.5 K/uL Lymphocytes # (Auto) 0.90 1.2-3.4 K/uL Monocytes # (Auto) 0.47 0.11-0.59 K/uL Eosinophils # (Auto) 0.05 0-0.5 K/uL Basophils # (Auto) 0.03 0-0.2 K/uL RDW Standard Deviation 57.2 36.4-46.3 fL RDW Coefficient of Variation 18.1 11.5-14.5 % Immature Granulocyte % (Auto) 0.3 % Immature Granulocyte # (Auto) 0.03 0.00-0.02 K/uL Prothrombin Time 21.4 9.0-12.0 SECONDS Prothromb Time International Ratio 2.1 0.9-1.1 Activated Partial Thromboplast Time 31.2 21.0-31.0 SECONDS Partial Thromboplastin Ratio 1.2 Venous Blood pH 7.45 7.36-7.41 Venous Blood Partial Pressure CO2 38 38.0-50.0 mmHg Venous Blood Partial Pressure O2 44 mmHg Venous Blood HCO3 26 mmol/L Venous Blood Oxygen Saturation 79.5 % Venous Blood Base Excess 2.0 mEq/L Sodium Level 135 136-145 mmol/L Potassium Level 4.0 3.5-5.1 mmol/L Chloride Level 104 98-107 mmol/L Carbon Dioxide Level 26 21-32 mmol/L Anion Gap 5.0 3-11 mmol/L Blood Urea Nitrogen 20 7-18 mg/dl Creatinine 0.85 0.60-1.20 mg/dl Est Creatinine Clear Calc Drug Dose 65.5 ml/min Estimated GFR () 77.1 Estimated GFR (Non- 66.6 BUN/Creatinine Ratio 24.0 10-20 Random Glucose 116 70-99 mg/dl Calcium Level 8.9 8.5-10.1 mg/dl Influenza Type A Antigen Neg for Influ A NEG Influenza Type B Antigen Neg for Influ B NEG Diagnostic Radiology CHEST ONE VIEW PORTABLE CLINICAL HISTORY: 77 years-old Female presenting with wheezing gay. TECHNIQUE: Portable upright AP view of the chest was obtained. COMPARISON: 04/29/2017. FINDINGS: Atherosclerosis of aortic arch. Cardiac silhouette enlarged. Vascular prominence. Lungs and pleural spaces clear. Kyphoplasty changes suggested in the mid thoracic spine. Large hiatal hernia. IMPRESSION: 1. Cardiomegaly with mild volume overload. No cristian pulmonary edema. Impression Assessment and Plan COPD exacerbation-- Ceftriaxone 1 g IV daily Levofloxacin 500 mg IV every 24 hours Solu-Medrol 40 mg IV every 8 hours Guaifenesin extended release 600 mg by mouth twice a day Xopenex/Atovent nebs q6hwa and q2h prn Nasal cannula 2 L of oxygen titrating to keep pulse ox greater than or equal to 92%. Atrial fibrillation-- Continue sotalol, warfarin and furosemide. Hyperlipidemia-- continue simvastatin 80 mg at bedtime. Check a fasting lipid panel Hypothyroidism-- continue levothyroxine sodium. GERD-- Continue ranitidine 150 mg p.o. twice daily. Depression-- Continue sertraline 100 mg p.o. every morning. CODE STATUS: Full, no mechanical ventilation Advanced Directives Existing Advance Directive: Yes Existing Living Will: Yes Existing Power of Machine Records Units Supervisor: No Resuscitation Status VTE Prophylaxis Will order VTE Prophylaxis: No Reason for no VTE drug order: Treatment not indicated Reason no Mechanical VTE Order: Treatment not indicated Resident Tracking Resident Involvement: Resident Care Provided Care Provided: Adult Hospital Medicine
[2017-11-28] MEDS ORDERED: LEVALBUTEROL 1.25MG/0.5ML NEB INH SCH (21:00)
[2017-11-28] MEDS ORDERED: LEVALBUTEROL/IPRATROPIUM NEB INH SCH (21:00)
[2017-11-28 21:15] VITALS: BP 143/96; PULSE 130; TEMP 36.8; Ht 162.6 cm; Wt 98.5 kg
[2017-11-28] MEDS ORDERED: WARFARIN SOD 5 MG TAB PO SCH (22:00)
[2017-11-28] MEDS ORDERED: CEFTRIAXONE SOD INJ 2,000 MG in DEXTROSE 5% 50ML 50 ML IV SCH (22:00)
[2017-11-28] MEDS: BUDESONIDE/FORMOTEROL FUMARATE 160/4.5 60 PUFFS/INHALER INH SCH (22:18)
[2017-11-28] MEDS: CALCIUM 600MG + VIT D 400 IU TAB PO SCH (22:19)
[2017-11-28] MEDS: RANITIDINE HCL 150 MG TAB PO SCH (22:19)
[2017-11-28] MEDS: SIMVASTATIN 80 MG TAB PO SCH (22:20)
[2017-11-28] MEDS: GUAIFENESIN 200 MG TAB PO SCH (22:20)
[2017-11-28] MEDS: SOTALOL HCL 80 MG TAB PO SCH (22:24)
[2017-11-28] MEDS: HYDROCODONE/HOMATROPINE SYRUP 5MG/1.5MG 5ML UDP PO SCH (22:25)
[2017-11-28] MEDS ORDERED: LEVOFLOXACIN / D5W 750 MG in PREMIXED IN D5W 150 ML IV SCH (22:30)
[2017-11-28 23:56] VITALS: BP 146/92; PULSE 82; TEMP 37.2; O2SAT 91
[2017-11-29] VITALS (9 sets, daily range): BP systolic 123–180; BP diastolic 59–99; PULSE 62–122; TEMP 36.5–37.2; O2SAT 91–96
[2017-11-29] MEDS: METHYLPREDNISOLONE IV 40 MG in SYRINGE 0 ML IV SCH ×3 (01:34→16:54)
[2017-11-29] MEDS: IPRATROPIUM BROMIDE NEB SOLN 0.02% 2.5 ML VIAL INH SCH ×4 (01:52→19:20)
[2017-11-29] MEDS: LEVALBUTEROL 1.25MG/0.5ML NEB INH SCH ×4 (01:52→19:20)
[2017-11-29] MEDS ORDERED: LEVOTHYROXINE 137 MCG TAB PO SCH (06:00)
[2017-11-29] MEDS: LEVOTHYROXINE 137 MCG TAB PO SCH (06:13)
[2017-11-29 07:39] LABS: CALCIUM 8.9 mg/dl (8.5-10.1); CREATININE 0.69 mg/dl (0.60-1.20); POTASSIUM 3.6 mmol/L (3.5-5.1)
[2017-11-29 07:45] LABS: BASO % 0.1 %; BASO ABS # 0.01 K/uL (0-0.2); HEMATOCRIT 35.7 % (37-47); HEMOGLOBIN 11.5 g/dL (12.0-16.0); IG# 0.03 K/uL (0.00-0.02); LYMPH ABS # 1.03 K/uL (1.2-3.4); MEAN CELL VOLUME 85.8 fL (80-100); MEAN CORPUSCULAR HEMOGLOBIN 27.6 pg (25-34); MEAN CORPUSCULAR HGB CONC 32.2 g/dl (32-36); MEAN PLATELET VOLUME 9.4 fL (7.4-10.4); MONO % 5.2 %; MONO ABS # 0.41 K/uL (0.11-0.59); NEUT % 81.3 %; NEUT ABS # 6.43 K/uL (1.4-6.5); PLATELET COUNT 229 K/uL (130-400); RED CELL DISTRIBUTION WIDTH CV 17.3 % (11.5-14.5); RED CELL DISTRIBUTION WIDTH SD 54.9 fL (36.4-46.3); WHITE BLOOD COUNT 7.91 K/uL (4.8-10.8)
[2017-11-29 07:52] LABS: INR 1.9 (0.9-1.1)
[2017-11-29] MEDS: MONTELUKAST SOD 10 MG TAB PO SCH (09:04)
[2017-11-29] MEDS: SERTRALINE HCL 100 MG TAB PO SCH (09:04)
[2017-11-29] MEDS: BUDESONIDE/FORMOTEROL FUMARATE 160/4.5 60 PUFFS/INHALER INH SCH ×2 (09:04→20:28)
[2017-11-29] MEDS: RANITIDINE HCL 150 MG TAB PO SCH ×2 (09:04→20:29)
[2017-11-29] MEDS: GUAIFENESIN 200 MG TAB PO SCH ×4 (09:05→20:27)
[2017-11-29] MEDS: SOTALOL HCL 80 MG TAB PO SCH ×2 (09:05→20:30)
--- NOTE | 2017-11-29 10:29 | Family Medicine Progress Note ---
Progress Note Date of Service Nov 29, 2017. Subjective Pt evaluation today including: conversation w/ patient, physical exam, chart review, lab review Pain: denies pain PO Intake: good Voiding: no voiding problems Was admitted with worsening SOB and cough. has been doing better. denies any SOB , CP. Constitutional: No fever, No chills Eyes: No worsening of vision ENT: No hearing loss Respiratory: + cough, + wheezing, + shortness of breath Cardiovascular: No chest pain, No orthopnea, No PND, No palpitations Abdomen: No pain, No nausea Musculoskeletal: No joint pain Female : No dysuria, No urinary frequency Neurologic: No memory loss, No paralysis Psychiatric: No depression symptoms Medications Current Inpatient Medications Medications (Trade) Dose Ordered Sig/Collin Route Start Time Stop Time Status Last Admin Dose Admin Acetaminophen (Tylenol Tab) 650 mg Q4H PRN PO 11/28/17 20:00 12/28/17 19:59 Al Hydrox/Mg Hydrox/Simethicone (Maalox Max Susp) 15 ml Q4H PRN PO 11/28/17 20:00 12/28/17 19:59 Magnesium Hydroxide (Milk Of Magnesia Susp) 30 ml Q12H PRN PO 11/28/17 20:00 12/28/17 19:59 Ondansetron HCl (Zofran Inj) 4 mg Q6H PRN IV 11/28/17 20:00 12/28/17 19:59 Polyethylene (Miralax Powder Packet) 17 gm DAILY PRN PO 11/28/17 20:00 12/28/17 19:59 Budesonide/ Formoterol Fumarate (Symbicort 160/ 4.5 Inh) 2 puffs BID INH 11/28/17 21:00 12/28/17 20:59 11/29/17 09:04 2 PUFFS Montelukast Sodium (Singulair Tab) 10 mg QAM PO 11/29/17 09:00 12/29/17 08:59 11/29/17 09:04 10 MG Ranitidine HCl (zANTac TAB) 150 mg BID PO 11/28/17 21:00 12/28/17 20:59 11/29/17 09:04 150 MG Sertraline HCl (Zoloft Tab) 100 mg QAM PO 11/29/17 09:00 5/8/18 08:59 11/29/17 09:04 100 MG Simvastatin (Zocor Tab) 80 mg QPM PO 11/28/17 21:00 12/28/17 20:59 11/28/17 22:20 80 MG Warfarin Sodium (Coumadin Tab) 5 mg Q2D@1600 PO 11/28/17 22:00 12/28/17 21:59 11/28/17 22:21 5 MG Warfarin Sodium (Coumadin Tab) 7.5 mg Q2D@1600 PO 11/29/17 16:00 12/29/17 15:59 Calcium/Vitamin D (Caltrate Plus Tab) 1 tab BID PO 11/28/17 21:00 12/28/17 20:59 11/28/17 22:19 1 TAB Sotalol HCl (Betapace Tab) 120 mg BID PO 11/28/17 21:00 12/28/17 20:59 11/29/17 09:05 120 MG Methylprednisolone Sodium Succinate 40 mg/Syringe 0.64 ml @ 1.5 mls/min Q8H IV 11/29/17 02:00 12/29/17 01:59 11/29/17 09:04 1.5 MLS/MIN Levofloxacin 750 mg/Prmx 150 ml @ 100 mls/hr Q24H IV 11/28/17 22:30 12/05/17 22:29 11/28/17 23:29 100 MLS/HR Ceftriaxone Sodium 2000 mg/ Dextrose 70 ml @ 100 mls/hr Q24H IV 11/28/17 22:00 12/05/17 21:59 11/28/17 22:20 100 MLS/HR Guaifenesin (Organidin Nr Tab) 200 mg Q4HWA PO 11/28/17 22:00 12/28/17 21:59 11/29/17 09:05 200 MG Hydrocodone Bit/ Homatropine Methylb (Hycodan Syrup) 5 ml QPM PO 11/28/17 21:00 12/12/17 20:59 11/28/17 22:25 5 ML Levothyroxine Sodium (Synthroid Tab) 137 mcg DAILYBB PO 11/29/17 06:00 12/29/17 06:59 11/29/17 06:13 137 MCG Ipratropium [place] (Atrovent 0.02% 0.5MG/2.5ML Neb) 0.5 mg Q6R INH 11/29/17 03:00 12/29/17 02:59 11/29/17 07:05 0.5 MG Levalbuterol (Xopenex 1.25MG/ 0.5ML Neb) 1.25 mg Q6R INH 11/29/17 03:00 12/29/17 02:59 11/29/17 07:05 1.25 MG Objective Vital Signs Date Time Temp Pulse Resp B/P (MAP) Pulse Ox O2 Delivery O2 Flow Rate FiO2 11/29/17 07:49 36.5 83 20 123/59 (80) 92 Room Air 11/29/17 07:06 62 18 96 Room Air 11/29/17 04:14 Room Air 11/29/17 03:22 36.6 92 21 130/76 (94) 92 Room Air 11/29/17 01:53 80 16 96 Room Air 11/28/17 23:59 Room Air 11/28/17 23:56 37.2 82 21 146/92 (110) 91 Room Air 11/28/17 21:15 36.8 130 16 143/96 Room Air 11/28/17 21:03 107 20 129/91 93 11/28/17 18:39 128 22 95 Nebulizer 8.0 11/28/17 18:09 110 21 97 Nebulizer 8.0 11/28/17 17:45 88 Room Air 11/28/17 17:39 131 28 92 11/28/17 17:26 109 11/28/17 17:10 37.5 117 24 163/96 93 Physical Exam General Appearance: WD/WN, no apparent distress Eyes: normal inspection ENT: hearing grossly normal, TMs normal Respiratory/Chest: no respiratory distress, + wheezing Cardiovascular: + irregularly irregular Abdomen: normal bowel sounds, non tender, soft Extremities: non-tender, no pedal edema Neurologic/Psychiatric: alert, normal mood/affect, oriented x 3 Laboratory Results 11/29/17 07:15 Red Blood Count 4.16, Mean Corpuscular Volume 85.8, Mean Corpuscular Hemoglobin 27.6, Mean Corpuscular Hemoglobin Concent 32.2, Mean Platelet Volume 9.4, Neutrophils (%) (Auto) 81.3, Lymphocytes (%) (Auto) 13.0, Monocytes (%) (Auto) 5.2, Eosinophils (%) (Auto) 0.0, Basophils (%) (Auto) 0.1, Neutrophils # (Auto) 6.43, Lymphocytes # (Auto) 1.03, Monocytes # (Auto) 0.41, Eosinophils # (Auto) 0.00, Basophils # (Auto) 0.01 11/29/17 06:42 Test 11/28/17 18:00 11/28/17 18:15 11/29/17 06:42 11/29/17 07:15 Activated Partial Thromboplast Time 31.2 SECONDS (21.0-31.0) Partial Thromboplastin Ratio 1.2 Venous Blood pH 7.45 (7.36-7.41) Venous Blood Partial Pressure CO2 38 mmHg (38.0-50.0) Venous Blood Partial Pressure O2 44 mmHg Venous Blood HCO3 26 mmol/L Venous Blood Oxygen Saturation 79.5 % Venous Blood Base Excess 2.0 mEq/L Influenza Type A Antigen Neg for Influ A (NEG) Influenza Type B Antigen Neg for Influ B (NEG) Anion Gap 10.0 mmol/L (3-11) Est Creatinine Clear Calc Drug Dose 79.3 ml/min Estimated GFR () 98.0 Estimated GFR (Non- 84.6 BUN/Creatinine Ratio 22.2 (10-20) Calcium Level 8.9 mg/dl (8.5-10.1) White Blood Count 7.91 K/uL (4.8-10.8) Red Blood Count 4.16 M/uL (4.2-5.4) Hemoglobin 11.5 g/dL (12.0-16.0) Hematocrit 35.7 % (37-47) Mean Corpuscular Volume 85.8 fL (80-100) Mean Corpuscular Hemoglobin 27.6 pg (25-34) Mean Corpuscular Hemoglobin Concent 32.2 g/dl (32-36) Platelet Count 229 K/uL (130-400) Mean Platelet Volume 9.4 fL (7.4-10.4) Neutrophils (%) (Auto) 81.3 % Lymphocytes (%) (Auto) 13.0 % Monocytes (%) (Auto) 5.2 % Eosinophils (%) (Auto) 0.0 % Basophils (%) (Auto) 0.1 % Neutrophils # (Auto) 6.43 K/uL (1.4-6.5) Lymphocytes # (Auto) 1.03 K/uL (1.2-3.4) Monocytes # (Auto) 0.41 K/uL (0.11-0.59) Eosinophils # (Auto) 0.00 K/uL (0-0.5) Basophils # (Auto) 0.01 K/uL (0-0.2) RDW Standard Deviation 54.9 fL (36.4-46.3) RDW Coefficient of Variation 17.3 % (11.5-14.5) Immature Granulocyte % (Auto) 0.4 % Immature Granulocyte # (Auto) 0.03 K/uL (0.00-0.02) Prothrombin Time 19.5 SECONDS (9.0-12.0) Prothromb Time International Ratio 1.9 (0.9-1.1) Assessment and Plan 77 y/o F with PMH of COPD/Asthma, HLD, Afib was admitted for SOB ,cough. Had an episode of non sustained Vtach this morning and she had felt dizzy during the episode, she has since seth asymptomatic and rhythm is Afib COPD exacerbation: - Solu-Medrol 40 mg IV every 8 hours - Guaifenesin extended release 600 mg by mouth twice a day - Xopenex/Atrovent nebs q6hwa and q2h prn - O2 per protocol - Antibiotics switched to azithromycin Atrial fibrillation with episode of nonsustained Vtach - Continue sotalol - AC with Coumadin - Monitor INR - Recheck K and Mg with goals of K >4 and Mg >2 Hyperlipidemia - continue simvastatin 80 mg at bedtime. Hypothyroidism - continue levothyroxine sodium. GERD -Continue ranitidine 150 mg p.o. twice daily. Depression Continue sertraline 100 mg p.o. every morning. CODE STATUS: Full, no mechanical ventilation Disposition; Monitor in tele Resident Physician Supervision Note: I interviewed and examined the patient. Discussed with Dr. Sage and agree with findings and plan as documented in the note. Any exceptions or clarifications are listed here: None Documented By: Jonhathon Polk feeling better breathing easier vitals noted nad breathing unlabored still harsh sounding wheeze but good air entry good effort COPD exacerbation -steroids, zithromax, supportive care, hopefully home 1-2 days otherwise as above Resident Tracking Resident Involvement: Resident Care Provided Care Provided: Adult [facility] Medicine
[2017-11-29] MEDS: CALCIUM 600MG + VIT D 400 IU TAB PO SCH ×2 (12:10→20:28)
[2017-11-29] MEDS ORDERED: AZITHROMYCIN 250 MG TAB PO ONE (15:45)
[2017-11-29] MEDS ORDERED: WARFARIN SOD 7.5 MG TAB PO SCH (16:00)
[2017-11-29 17:32] LABS: CALCIUM 9.3 mg/dl (8.5-10.1); CREATININE 0.85 mg/dl (0.60-1.20); POTASSIUM 4.1 mmol/L (3.5-5.1)
[2017-11-29] MEDS: SIMVASTATIN 80 MG TAB PO SCH (20:29)
[2017-11-29] MEDS: HYDROCODONE/HOMATROPINE SYRUP 5MG/1.5MG 5ML UDP PO SCH (20:29)
[2017-11-30 00:34] VITALS: BP 146/81; PULSE 94; TEMP 36.8; O2SAT 91
[2017-11-30] MEDS: LEVALBUTEROL 1.25MG/0.5ML NEB INH SCH ×2 (01:37→07:00)
[2017-11-30] MEDS: IPRATROPIUM BROMIDE NEB SOLN 0.02% 2.5 ML VIAL INH SCH ×2 (01:37→07:00)
[2017-11-30] MEDS: METHYLPREDNISOLONE IV 40 MG in SYRINGE 0 ML IV SCH ×2 (02:04→10:00)
[2017-11-30 03:37] VITALS: BP 136/78; PULSE 84; TEMP 36.5; O2SAT 92
[2017-11-30] MEDS: LEVOTHYROXINE 137 MCG TAB PO SCH (06:16)
--- NOTE | 2017-11-30 06:36 | Family Medicine Progress Note ---
Progress Note Date of Service Nov 30, 2017. Assessment and Plan Resident Involvement: Resident Care Provided Care Provided: Adult [facility] Medicine
[2017-11-30 07:00] VITALS: PULSE 85; O2SAT 96
[2017-11-30 07:56] VITALS: BP 133/68; PULSE 74; TEMP 36.6; O2SAT 95
[2017-11-30] MEDS: BUDESONIDE/FORMOTEROL FUMARATE 160/4.5 60 PUFFS/INHALER INH SCH (08:36)
[2017-11-30] MEDS: MONTELUKAST SOD 10 MG TAB PO SCH (08:37)
[2017-11-30] MEDS: SOTALOL HCL 80 MG TAB PO SCH (08:37)
[2017-11-30] MEDS: SERTRALINE HCL 100 MG TAB PO SCH (08:37)
[2017-11-30] MEDS: RANITIDINE HCL 150 MG TAB PO SCH (08:37)
[2017-11-30] MEDS: GUAIFENESIN 200 MG TAB PO SCH ×2 (08:37→12:00)
[2017-11-30] MEDS: CALCIUM 600MG + VIT D 400 IU TAB PO SCH (08:37)
[2017-11-30 09:51] LABS: ALBUMIN 3.2 gm/dl (3.4-5.0); CALCIUM 9.6 mg/dl (8.5-10.1); CREATININE 0.79 mg/dl (0.60-1.20)
[2017-11-30] MEDS ORDERED: AZIT-57 PO (10:39)
[2017-11-30] MEDS ORDERED: PRED10TA PO (10:39)
--- NOTE | 2017-11-30 10:47 | Discharge Instructions ---
Discharge Instructions Date of Service Nov 30, 2017. Admission Reason for Admission: Copd Exacerbation Discharge Discharge Diagnosis / Problem: Asthma / COPD Exacerbation Discharge Goals Goal(s): Decrease discomfort, Improve function, Increase independence, Improve disease control, Improve nutritional status, Learn about illness Activity Recommendations Activity Limitations: per Instructions/Follow-up section . Instructions / Follow-Up Instructions / Follow-Up Please follow up with your Primary Care provider within one week. You are being prescribed 4 days of Azithromycin. Please take Azithromycin as prescribed starting this afternoon. You are also being prescribed Prednisone. Please take the medication as prescribed starting with 6 tablets tomorrow (12/01/17) morning and then taper by one tablet every 24 hours. Information on Azithromycin and Prednisone will be printed for you on your discharge. Please read this information carefully. Please follow up with your Teletype Telegrapher and Brand Advisor at your regularly scheduled appointments. While in the hospital you had a two short runs of Ventricular Tachycardia (8 beats and 18 beats). You may wish to discuss this at your next adjustment clerk appointment. Please continue to take all of your outpatient medications as prescribed. Current Hospital Diet Patient's current hospital diet: AHA Diet (Heart Healthy) Discharge Diet Recommended Diet: AHA Diet (Heart Healthy) Pending Studies Studies pending at discharge: no Medical Emergencies . Who to Call and When: Medical Emergencies: If at any time you feel your situation is an emergency, please call 911 immediately. . Non-Emergent Contact Non-Emergency issues call your: Primary Care Provider, Brand Advisor, Teletype Telegrapher . . "Provider Documentation" section prepared by Reggie Granda. . Resident Involvement: Resident Care Provided Care Provided: Adult Hospital Medicine
--- NOTE | 2017-11-30 11:01 | Discharge Summary ---
Discharge Summary Date of Service Nov 30, 2017. Discharge Summary Admission Date: Nov 28, 2017 at 20:19 Discharge Date: Nov 30, 2017 Discharge Disposition: Home Principal Diagnosis: Asthma / COPD Exacerbation Problems/Secondary Diagnoses: Paroxysmal Afib Hypertension Hiatal hernia Depression GERD Aortic Stenosis Mitral Regurgiation Hyperlipidemia Immunizations: Have You Had Influenza Vaccine: Unknown History of Tetanus Vaccine?: Unknown History of Pneumococcal: Unknown History of Hepatitis B Vaccine: Unknown Procedures: CHEST ONE VIEW PORTABLE CLINICAL HISTORY: 77 years-old Female presenting with wheezing gay. TECHNIQUE: Portable upright AP view of the chest was obtained. COMPARISON: 04/29/2017. FINDINGS: Atherosclerosis of aortic arch. Cardiac silhouette enlarged. Vascular prominence. Lungs and pleural spaces clear. Kyphoplasty changes suggested in the mid thoracic spine. Large hiatal hernia. IMPRESSION: 1. Cardiomegaly with mild volume overload. No cristian pulmonary edema. EKG Atrial fibrillation with rapid ventricular response Nonspecific ST abnormality Abnormal ECG No previous ECGs available Confirmed by GILMER CHIN ([id number]) on 11/29/2017 10:38:48 AM Consultations: CHEST ONE VIEW PORTABLE CLINICAL HISTORY: 77 years-old Female presenting with wheezing gay. TECHNIQUE: Portable upright AP view of the chest was obtained. COMPARISON: 04/29/2017. FINDINGS: Atherosclerosis of aortic arch. Cardiac silhouette enlarged. Vascular prominence. Lungs and pleural spaces clear. Kyphoplasty changes suggested in the mid thoracic spine. Large hiatal hernia. IMPRESSION: 1. Cardiomegaly with mild volume overload. No cristian pulmonary edema. Medication Reconciliation New Medications: Prednisone (Prednisone) 10 Mg Tab 10 MG PO UD for 6 Days, #21 TAB Take 6 tabs on 12/01, 5 tabs on 12/02 4 tabs on 12/03 3 tabs on 12/04 2 tabs on 12/05 1 tab on 12/06 Azithromycin (Azithromycin) 250 Mg Tab 250 MG PO QAM for 4 Days, #4 TAB Start today at 3pm and take every 24 hours. Continued Medications: Albuterol Hfa (Ventolin Hfa) 200 Puffs/60860 Mcg Aers 2-4 PUFFS INH Q6H PRN for Shortness of Breath Budesonide/Formoterol Fumarate (Symbicort 160/4.5 Inhaler ) Aero 2 PUFFS INH BID, INHALER Calcium Carbonate-Vitamin D (Calcium + D) 1 Tab Tab 1 TAB PO BID Furosemide (Lasix) 40 Mg Tab 40 MG PO QAM, TAB Levalbuterol Hcl (Levalbuterol) 1.25 Mg/0.5 Ml Neb 1 DOSE INH Q4H PRN for Shortness of Breath Levothyroxine Sodium (Tirosint) 137 Mcg Cap 1 CAP PO QAM Montelukast Sodium (Singulair) 10 Mg Tab 10 MG PO QAM, TAB Ranitidine (Zantac) 150 Mg Tab 150 MG PO BID, TAB Sertraline (Zoloft) 100 Mg Tab 100 MG PO QAM, TAB Simvastatin (Zocor) 80 Mg Tab 80 MG PO QPM, TAB Sotalol Hcl (Sotalol Hcl) 120 Mg Tab 1 TAB PO BID Warfarin Sod (Jantoven) 7.5 Mg Tab 7.5 MG PO UD Warfarin Sod (Jantoven) 5 Mg Tab 5 MG PO UD Discharge Exam Pt was seen and examined at bedside. Off Oxygen. Doing well. Excited to go home. Telemetry showed A Fib in the 70s and 80s. Review of Systems: Constitutional: No fever, No chills, No weight loss Respiratory: No cough, No sputum, No wheezing, No shortness of breath Cardiovascular: No chest pain Abdomen: No pain, No nausea, No vomiting, No diarrhea, No constipation Genitourinary - Female: No dysuria Neurologic: No memory loss Psychiatric: No depression symptoms Physical Exam: General Appearance: WD/WN, no apparent distress Eyes: normal inspection, PERRL Neck: supple Respiratory/Chest: chest non-tender, lungs clear, normal breath sounds, no respiratory distress, no accessory muscle use Cardiovascular: no JVD, no murmur, + irregularly irregular Abdomen / GI: normal bowel sounds, non tender, soft, no organomegaly, no pulsatile mass Extremities: no calf tenderness, normal capillary refill, normal range of motion, + pedal edema (2+) Neurologic/Psychiatric: mill tender II-XII nml as tested, no motor/sensory deficits , alert, normal mood/affect, normal reflexes, oriented x 3 Skin: normal color, warm/dry, no rash Hospital Course 77F with PMH of COPD/Asthma, HLD, Afib on Coumadin was admitted for SOB ,& cough sec to Exacerbation of Asthma/COPD due to viral respiratory infection/GERD /Allergies. Pt was started on IV Steroids and Azithromycin. Her condition improved and she was discharged on 4 days of Azithromycin and a Prednisone taper starting at 60mg on 12/01/17 and decreasing by 10mg daily for 6 days. Reviewed her last PFT and last CT scan (2013). CT showed Large hiatal hernia and granulomatous disease. No emphysematous changes noted. Patient has h/o sleep apnea - but doesn't uses cpap. Advised to have it readdress as outpatient. While in the hospital her hospital course was significant for two runs of Vtach approx 24 hours apart. The first episode was 18 beats and the second episode was 8 beats. It is documented that the patient felt dizzy during the first episode. Pt was asymptomatic for the second episode. All electrolytes were within normal limits. Otherwise the patient telemetry monitoring showed Atrial Fibrillation with a rate in the 70s and 80s during her admission. Lasix was held on admission and continued on discharge. All other home meds were continued on discharge as above. Total Time Spent: Greater than 30 minutes This includes examination of the patient, discharge planning, medication reconciliation, and communication with other providers. Discharge Instructions Please refer to the electronic Patient Visit Report (Discharge Instructions) for additional information. Additional Copies To Madhu Prieto M.D.; Suma Isabel M.D.; Jerson Roman, PA-C Resident Involvement: Resident Care Provided Care Provided: Adult Hospital Medicine Reviewed: Pt Seen/Exam by Me History cough much improved. breathing back to baseline Constitutional: denies: fever Respiratory: negative: short of breath Cardiovascular: denies chest pain General Appearance: no apparent distress Respiratory: no respiratory distress, other (occasional rhonchi) Cardiovascular: regular rate, rhythm Gastrointestinal: soft Neurologic/Psychiatric: alert, oriented x 3 Skin Characteristics: warm/dry Assessment/Plan Resident Physician Supervision Note: I independently interviewed and examined the patient and verified the noel history and physical, reviewed labs and image studies, discussed the case with the resident Dr. Granda and agree with the findings and care plan. Time spent in discharge 35 min
[2017-11-30 11:11] VITALS: BP 133/68; PULSE 74; TEMP 36.6; O2SAT 95
[2017-12-01] MEDS ORDERED: AZITHROMYCIN 250 MG TAB PO SCH (09:00)
== END 2017-11-30 12:25 | disposition home or self-care (01) | DRG 191 ==
LOC: C.EDB 17:10 → C.2T 20:19 → ENRESERV 20:23
PROVIDERS: ADMIT Hospitalist; ATTEND Family Medicine
DX: J44.1 Chronic obstructive pulmonary disease with (acute) exacerbation (principal); I47.2 Ventricular tachycardia; Z79.01 Long term (current) use of anticoagulants; I48.91 Unspecified atrial fibrillation; F32.9 Major depressive disorder, single episode, unspecified; E78.5 Hyperlipidemia, unspecified; E03.9 Hypothyroidism, unspecified; K21.9 Gastro-esophageal reflux disease without esophagitis; I10 Essential (primary) hypertension; K44.9 Diaphragmatic hernia without obstruction or gangrene; I35.0 Nonrheumatic aortic (valve) stenosis

== ENCOUNTER → 2017-12-03 | Outpatient (CLI) | payer BC, OTHER ==
[~2017-12-03] MED LIST changes: +AZIT-57 PO; +PRED10TA PO
[2017-12-11 17:27] LABS: BORDETELLA PERTUSSIS FHA IGA 22 IU/mL; BORDETELLA PERTUSSIS FHA IGG 35 IU/mL; BORDETELLA PERTUSSIS PT IGG 2 IU/mL
== END | disposition home or self-care (01) ==
LOC: C.LABMFLN 12:14
PROVIDERS: ATTEND Family Medicine
DX: R05 Cough (principal)

== ENCOUNTER → 2018-03-29 | Outpatient (CLI) | payer BC ==
[~2018-03-29] MED LIST changes: -PRED10TA PO
[2018-03-29 18:55] LABS: BASO % 0.6 %; BASO ABS # 0.04 K/uL (0-0.2); EOS ABS # 0.26 K/uL (0-0.5); HEMATOCRIT 38.4 % (37-47); HEMOGLOBIN 11.5 g/dL (12.0-16.0); IG# 0.01 K/uL (0.00-0.02); LYMPH % 23.2 %; MEAN CELL VOLUME 86.3 fL (80-100); MEAN CORPUSCULAR HEMOGLOBIN 25.8 pg (25-34); MEAN CORPUSCULAR HGB CONC 29.9 g/dl (32-36); MEAN PLATELET VOLUME 9.9 fL (7.4-10.4); MONO ABS # 0.52 K/uL (0.11-0.59); NEUT ABS # 4.14 K/uL (1.4-6.5); PLATELET COUNT 236 K/uL (130-400); RED CELL DISTRIBUTION WIDTH CV 16.2 % (11.5-14.5); RED CELL DISTRIBUTION WIDTH SD 51.8 fL (36.4-46.3); WHITE BLOOD COUNT 6.47 K/uL (4.8-10.8)
[2018-03-29 19:01] LABS: ALBUMIN 3.7 gm/dl (3.4-5.0); BLOOD UREA NITROGEN 17 mg/dl (7-18); CALCIUM 8.9 mg/dl (8.5-10.1); CARBON DIOXIDE 24 mmol/L (21-32); CHOLESTEROL 139 mg/dl (0-200); CREATININE 0.92 mg/dl (0.60-1.20); GLUCOSE 103 mg/dl (70-99); LDL CHOLESTEROL CALCULATED 68 mg/dl; PHOSPHORUS 3.4 mg/dl (2.5-4.9); POTASSIUM 4.2 mmol/L (3.5-5.1); SODIUM 139 mmol/L (136-145)
== END | disposition home or self-care (01) ==
LOC: C.LABMFLN 10:53
PROVIDERS: ATTEND Family Medicine
DX: E03.9 Hypothyroidism, unspecified (principal); I10 Essential (primary) hypertension; E78.5 Hyperlipidemia, unspecified

== ENCOUNTER 2019-07-05 08:00 | Inpatient (IN) ==
--- NOTE | 2019-06-27 09:46 | Anesthesiology Consultation ---
Date of Service June 27, 2019 Assessment & Plan Chart Review Chart Review: Pending: Refer to Additional Notes / Consult section (Patient needs to be seen by PAT clinic) History Surgery Operation Date: 07/05/19 07:55 Proposed Procedures p Right Breast Lumpectomy with Needle Localization(Right) - Manuel Jaramillo, Height/Weight Height: 5 ft 4 in Weight: 102.058 kg Allergies Allergy/AdvReac Type Severity Reaction Status Date / Time No Known Drug Allergies Allergy Verified 06/24/19 10:58 Medications Home Medications Medication Instructions Recorded Confirmed Last Taken albuterol sulfate HFA 90 2 puffs INHALATION Q4H PRN #18 gm 04/06/19 06/24/19 04/29/19 08:00 mcg/actuation aerosol inhaler calcium carbonate 600 mg (1,500 1 tab PO BID #180 tab 04/06/19 06/24/19 04/28/19 21:00 mg)-vitamin D3 400 unit tablet levalbuterol 1.25 mg/3 mL solution 1.25 mg INHALATION Q4H PRN #90 ml 04/06/19 06/24/19 04/29/19 08:00 for nebulization potassium chloride ER 10 mEq 10 meq PO BID #180 cap 04/06/19 06/24/19 04/28/19 17:00 capsule,extended release Spiriva Respimat 2 puffs INH DAILY PRN 04/14/19 06/24/19 Unknown atenolol 75 mg PO QAM 04/14/19 06/24/19 04/29/19 08:30 furosemide 40 mg PO QAM 04/14/19 06/24/19 04/28/19 08:00 simvastatin [Zocor] 80 mg PO HS 04/14/19 06/24/19 04/28/19 21:00 warfarin 5 mg PO 4XWK 04/14/19 06/24/19 04/24/19 08:00 warfarin 7.5 mg PO 3XWK 04/14/19 06/24/19 04/23/19 08:00 sertraline 100 mg tablet 150 mg PO QAM #45 tab 05/23/19 06/24/19 Unknown levothyroxine 137 mcg tablet 137 mcg PO QAM #90 tab 05/24/19 06/24/19 Unknown budesonide-formoterol [Symbicort] 2 puffs INHALATION BID 06/24/19 06/24/19 Unknown Past Medical History Medical History Asthma (Chronic) Hiatal hernia (Chronic) "CT from 2013" Anticoagulant long-term use (Chronic) Restrictive lung disease (Chronic) Obstructive sleep apnea (Chronic) cpap ordered, pt "took it back" and does not use as ordered Obesity (Chronic) Mitral regurgitation (Chronic) Iron deficiency anemia (Chronic) Hypothyroidism (Chronic) Hypertension (Chronic) Hyperlipidemia (Chronic) Esophageal reflux (Chronic) Depression (Chronic) Congestive heart failure (Chronic) hx of Chronic obstructive pulmonary disease (Chronic) inhalers/nebulizer prn Atrial fibrillation, permanent (Chronic) on warfarin, follows with a Dr. Prieto Aortic stenosis (Chronic) Adenomatous polyp of colon (Chronic) Abnormal mammogram (Chronic) Anxiety Hiatal hernia History of cardioversion On anticoagulant therapy warfarin daily Past Family History Family History Father Coronary heart disease Myocardial infarction Mother Hypertension Sister Stroke Other No family history of adverse response to anesthesia Past Surgical History Surgical History History of back surgery S/P kyphoplasty History of bilateral cataract extraction History of bilateral tubal ligation History of carpal tunnel surgery of right wrist History of colonoscopy History of esophagogastroduodenoscopy (EGD) History of left knee surgery History of tonsillectomy and adenoidectomy History of tooth extraction Social History Smoking Status: Never smoker Do You Dip or Chew Tobacco: No Hx Alcohol Use: Yes Alcohol type: other alcohol intake frequency: holidays/special occasions only Alcohol Intake Frequency Comment: satnam alexis Hx Substance Use: No substance use type: does not use
--- NOTE | 2019-06-30 19:58 | PAT Medication Instructions ---
Medication Instructions Date of Service June 30, 2019 Home Medications Medication Instructions Recorded albuterol sulfate HFA 90 2 puffs INHALATION Q4H PRN #18 gm 04/06/19 mcg/actuation aerosol inhaler calcium carbonate 600 mg (1,500 1 tab PO BID #180 tab 04/06/19 mg)-vitamin D3 400 unit tablet levalbuterol 1.25 mg/3 mL solution 1.25 mg INHALATION Q4H PRN #90 ml 04/06/19 for nebulization potassium chloride ER 10 mEq 10 meq PO BID #180 cap 04/06/19 capsule,extended release sertraline 100 mg tablet 150 mg PO QAM #45 tab 05/23/19 levothyroxine 137 mcg tablet 137 mcg PO QAM #90 tab 05/24/19 albuterol sulfate HFA 90 mcg/actuation aerosol inhaler 2 puffs INHALATION Q4H PRN #18 gm 04/06/19 [Rx Confirmed 06/24/19] calcium carbonate 600 mg (1,500 mg)-vitamin D3 400 unit tablet 1 tab PO BID #180 tab 04/06/19 [Rx Confirmed 06/24/19] levalbuterol 1.25 mg/3 mL solution for nebulization 1.25 mg INHALATION Q4H PRN #90 ml 04/06/19 [Rx Confirmed 06/24/19] potassium chloride ER 10 mEq capsule,extended release 10 meq PO BID #180 cap 04/06/19 [Rx Confirmed 06/24/19] Spiriva Respimat 2 puffs INH DAILY PRN 04/14/19 [History Confirmed 06/24/19] atenolol 75 mg PO QAM 04/14/19 [History Confirmed 06/24/19] furosemide 40 mg PO QAM 04/14/19 [History Confirmed 06/24/19] simvastatin [Zocor] 80 mg PO HS 04/14/19 [History Confirmed 06/24/19] warfarin 5 mg PO 4XWK 04/14/19 [History Confirmed 06/24/19] warfarin 7.5 mg PO 3XWK 04/14/19 [History Confirmed 06/24/19] sertraline 100 mg tablet 150 mg PO QAM #45 tab 05/23/19 [Rx Confirmed 06/24/19] levothyroxine 137 mcg tablet 137 mcg PO QAM #90 tab 05/24/19 [Rx Confirmed 06/24/19] budesonide-formoterol [Symbicort] 2 puffs INHALATION BID 06/24/19 [History Confirmed 06/24/19] ASK your prescriber and surgeon warfarin 5 mg PO 4XWK 04/14/19 [History Confirmed 06/24/19] warfarin 7.5 mg PO 3XWK 04/14/19 [History Confirmed 06/24/19] DO NOT take the morning of surgery calcium carbonate 600 mg (1,500 mg)-vitamin D3 400 unit tablet 1 tab PO BID #180 tab 04/06/19 [Rx Confirmed 06/24/19] potassium chloride ER 10 mEq capsule,extended release 10 meq PO BID #180 cap 04/06/19 [Rx Confirmed 06/24/19] furosemide 40 mg PO QAM 04/14/19 [History Confirmed 06/24/19] Take morning of surgery With a small sip of water, OTHERWISE NOTHING TO EAT OR DRINK AFTER MIDNIGHT: albuterol sulfate HFA 90 mcg/actuation aerosol inhaler 2 puffs INHALATION Q4H PRN #18 gm 04/06/19 [Rx Confirmed 06/24/19] (use if needed; please bring with you to hospital day of surgery if possible) levalbuterol 1.25 mg/3 mL solution for nebulization 1.25 mg INHALATION Q4H PRN #90 ml 04/06/19 [Rx Confirmed 06/24/19] (if needed) Spiriva Respimat 2 puffs INH DAILY PRN 04/14/19 [History Confirmed 06/24/19] (if needed) atenolol 75 mg PO QAM 04/14/19 [History Confirmed 06/24/19] sertraline 100 mg tablet 150 mg PO QAM #45 tab 05/23/19 [Rx Confirmed 06/24/19] levothyroxine 137 mcg tablet 137 mcg PO QAM #90 tab 05/24/19 [Rx Confirmed 06/24/19] budesonide-formoterol [Symbicort] 2 puffs INHALATION BID 06/24/19 [History Confirmed 06/24/19] Other Notes If you have any questions please call us at [phone] or [phone] or [phone] or [phone]
[2019-07-01 13:03] LABS: Hematocrit (blood only) 37.4 % (37-47); Hemoglobin 11.4 g/dL (12.0-16.0); Mean Corpuscular Hemoglobin 25.9 pg (25-34); Mean Corpuscular Hgb Conc 30.5 g/dL (32-36); Mean Corpuscular Volume 84.8 fL (80-100); Mean Platelet Volume 9.6 fL (7.4-10.4); Platelet Count 251 K/uL (130-400); RDW Coefficient of Variation 17.4 % (11.5-14.5); Red Blood Count 4.41 M/uL (4.2-5.4); White Blood Count 7.14 K/uL (4.8-10.8)
[2019-07-01 13:17] LABS: BUN Creatinine Ratio 21.3 (10-20); Calcium 9.3 mg/dl (8.5-10.1); Creatinine Clr Calc Pharmacy 56.7 ml/min; Est GFR (African American) 66.5; Est GFR (Non-African American) 57.4; Potassium 4.5 mmol/L (3.5-5.1)
[~2019-07-05 08:00] MED LIST changes: -AZIT-57 PO; -CALC600T9 PO; +CEFAZOLIN 2000MG 2,000 MG/15 ML SYR IV SCH; -FRS/40 PO; -LEVA1.255 INH; -LEVO137C2 PO; +LR 15ML/HR IV SCH; -MONT1TAB3 PO; -RANI150T85 PO; -SERT-234 PO; -SIMV80TA2 PO; -SOTA120T PO; -SYMIN160 INH; -VNTHFA/IN INH; -WARF5TAB7 PO; -WARF7.5T4 PO
[2019-07-05 09:54] LABS: INR 2.5 (0.9-1.1); Partial Thromboplastin Ratio 1.2; Partial Thromboplastin Time 33.4 Seconds (21.0-31.0)
--- NOTE | 2019-07-05 14:05 | History & Physical Bridge Note ---
Date of Service July 05, 2019 History & Physical Bridge Note I have examined the patient, reviewed the History & Physical and in the interval since the performance of the History & Physical I have noted the following changes of clinical significance: no changes noted After needle placement but prior to going to the operating room labs were drawn and the patient was noted to have an INR of 2.5. Admittedly she failed to stop her Coumadin prior to the procedure. Because of the needle being in place with a dewayne on it, it would be quite difficult to remove. After speaking to Dr. Tyson at the breast center we decided to admit the patient for Coumadin reversal with planned surgery for . Patient agreeable.
[2019-07-05] MEDS ORDERED: LEVALBUTEROL HCL 1.25 MG/3 ML NEB INH PRN (15:42)
[2019-07-05] MEDS ORDERED: PHYTONADIONE 5 MG TAB PO STA (15:42)
[2019-07-05] MEDS ORDERED: TIOTROPIUM BROMIDE 5 PUFF/90 MCG INH INH PRN (15:42)
[2019-07-05] MEDS ORDERED: ONDANSETRON INJ 2 MG/ML 2 ML VIAL IV PRN (15:42)
[2019-07-05] MEDS ORDERED: HYDROCODONE/ACETAMOPHEN 5/325MG TAB PO PRN (15:42)
[2019-07-05] MEDS ORDERED: MoRPHine SULFATE 2 MG/ML CARP IV PRN (15:42)
[2019-07-05] MEDS ORDERED: ALBUTEROL HFA 8 GM INHALER INH PRN (15:42)
[2019-07-05] MEDS ORDERED: PNEUMOCOCCAL POLYSACCHARIDES 25 MCG/0.5 ML VIAL/SYR IM ONE (16:15)
[2019-07-05] MEDS ORDERED: PNEUMOCOCCAL ADMINISTRATION CHARGE ONE (16:15)
[2019-07-05] MEDS ORDERED: INFLUENZA VACCINE HIGH DOSE 65+ 0.5 ML SYR IM ONE (16:15)
[2019-07-05] MEDS ORDERED: INFLUENZA ADMINISTRATION CHARGE ONE (16:15)
[2019-07-05] MEDS: POTASSIUM CHLORIDE 10 MEQ TABCR PO SCH (20:08)
[2019-07-05] MEDS: CALCIUM 600MG + VIT D 400 IU TAB PO SCH (20:08)
[2019-07-05] MEDS: SIMVASTATIN 80 MG TAB PO SCH (20:09)
[2019-07-05] MEDS: BUDESONIDE/FORMOTEROL FUMARATE 160/4.5 60 PUFFS/INHALER INH SCH (20:09)
[2019-07-06] MEDS: LEVOTHYROXINE SODIUM 137 MCG TABLET PO SCH (05:38)
--- NOTE | 2019-07-06 08:37 | Surgery Progress Note ---
Date of Service July 06, 2019 Assessment & Plan (1) Atypical ductal hyperplasia of right breast: Awaiting INR to downtrend. Patient given 10mg Vitamin K yesterday and will receive another 10mg today Make NPO at midnight Will recheck INR in the AM Plan for OR tomorrow with Dr. Jaramillo for right breast lumpectomy pending INR. Needle localization performed yesterday as above. will type/cross FFP in case INR still elevated tomorrow. Subjective Patient offers no complaints from overnight. Tolerating diet. Needle in R breast remains in place. Physical Exam Physical Exam: awake/alert Chest (Breasts): Additional Comments: R breast needle in place with bandage overtop Results & Data Vital Signs (Past 12 Hours) Vital Signs Temp Pulse Resp BP BP Pulse Ox 07/06/19 07:27 36.6 C 70 18 147/87 H 94 07/05/19 23:35 36.9 C 84 16 129/71 91 PG Care Time/CCT Total # of Minutes Spent Total Time Spent with Patient: Total time spent is greater than 50% in coordination of care (as documented) at patient's floor/unit and/or counseling patient:
[2019-07-06] MEDS: FUROSEMIDE 40 MG TAB PO SCH (08:51)
[2019-07-06] MEDS: POTASSIUM CHLORIDE 10 MEQ TABCR PO SCH ×2 (08:55→20:42)
[2019-07-06] MEDS: BUDESONIDE/FORMOTEROL FUMARATE 160/4.5 60 PUFFS/INHALER INH SCH ×2 (08:55→20:40)
[2019-07-06] MEDS: CALCIUM 600MG + VIT D 400 IU TAB PO SCH ×2 (08:55→20:42)
[2019-07-06] MEDS: SERTRALINE HCL 50 MG TABLET PO SCH (08:56)
[2019-07-06] MEDS: ATENOLOL 25 MG TABLET PO SCH (08:56)
[2019-07-06] MEDS ORDERED: PHYTONADIONE 5 MG TAB PO SCH (09:00)
[2019-07-06] MEDS ORDERED: SODIUM CHLORIDE 0.9% 250 ML IV PRN (10:53)
--- NOTE | 2019-07-06 13:56 | Anesthesiology Consultation ---
Date of Service July 06, 2019 Assessment & Plan Chart Review Chart Review: Acceptable Risk for Surgery and Patient NOT seen in Pre Admission Testing Consults Requested none ASA ASA4 History Surgery Operation Date: 07/05/19 10:45 Proposed Procedures p Right Breast Lumpectomy with Needle Localization(Right) - Manuel Jaramillo DO Operation Date: 07/05/19 12:50 Proposed Procedures p Right Breast Lumpectomy with Needle Localization - Manuel Jaramillo DO Operation Date: 07/07/19 10:30 Proposed Procedures p Right Breast Lumpectomy with Needle Localization - Manuel Jaramillo, Height/Weight Height: 5 ft 4 in Weight: 102.1 kg Allergies Allergy/AdvReac Type Severity Reaction Status Date / Time No Known Drug Allergies Allergy Verified 06/24/19 10:58 Medications Home Medications Medication Instructions Recorded Confirmed Last Taken albuterol sulfate 90 mcg/actuation 2 puffs INHALATION Q4H PRN #18 gm 04/06/19 07/05/19 04/29/19 08:00 aerosol inhaler calcium carbonate 600 mg (1,500 1 tab PO BID #180 tab 04/06/19 07/05/19 07/04/19 16:00 mg)-vitamin D3 400 unit tablet levalbuterol HCl 1.25 mg/3 mL 1.25 mg INHALATION Q4H PRN #90 ml 04/06/19 07/05/19 04/29/19 08:00 solution for nebulization potassium chloride 10 mEq 10 meq PO BID #180 cap 04/06/19 07/05/19 07/04/19 19:00 capsule,extended release Spiriva Respimat 2 puffs INH DAILY PRN 04/14/19 07/05/19 Unknown atenolol 75 mg PO QAM 04/14/19 07/05/19 07/05/19 06:30 furosemide [Lasix] 40 mg PO QAM 04/14/19 07/05/19 07/04/19 09:00 simvastatin [Zocor] 80 mg PO HS 04/14/19 07/05/19 07/04/19 22:00 warfarin 0.5 mg PO 4XWK 04/14/19 07/05/19 07/04/19 09:00 warfarin [Coumadin] 7.5 mg PO 3XWK 08/2207/05/19 07/02/19 levothyroxine 137 mcg tablet 137 mcg PO QAM #90 tab 05/24/19 07/05/19 07/04/19 09:00 budesonide-formoterol [Symbicort] 2 puffs INHALATION BID 06/24/19 07/05/19 07/04/19 10:00 sertraline [Zoloft] 150 mg PO QAM 07/05/19 07/05/19 07/04/19 09:00 Active Medications Generic Name Dose Route Start Last Admin Trade Name Mamta PRN Reason Stop Dose Admin Atenolol 75 mg 07/06/19 09:00 07/06/19 08:56 Tenormin PO 08/05/19 08:59 75 mg QAM DANILO Administration Budesonide/Formoterol Fumarate 2 puffs 07/05/19 21:00 07/06/19 08:55 Symbicort 160mcg/4.5mcg INH 08/04/19 20:59 2 puffs BID DANILO Administration Furosemide 40 mg 07/06/19 09:00 07/06/19 08:51 Lasix PO 08/05/19 08:59 Not Given QAM DANILO Levothyroxine Sodium 137 mcg 07/06/19 06:30 07/06/19 05:38 Levothyroxine Sodium PO 08/05/19 06:29 137 mcg DAILYBB DANILO Administration Multivitamins/Minerals 1 tab 07/05/19 21:00 07/06/19 08:55 Caltrate Plus PO 08/04/19 20:59 1 tab BID DANILO Administration Potassium Chloride 10 meq 07/05/19 21:00 07/06/19 08:55 Klor-Con M10 PO 08/04/19 20:59 10 meq BID DANILO Administration Sertraline HCl 150 mg 07/06/19 09:00 07/06/19 08:56 Zoloft PO 08/05/19 08:59 150 mg QAM DANILO Administration Simvastatin 80 mg 07/05/19 21:00 07/05/19 20:09 Zocor PO 08/04/19 20:59 80 mg HS DANILO Administration NPO Date Last Intake of Fluids: 07/04/19 Time Last Intake of Fluids: 22:00 Date Last Intake of Solids: 07/04/19 Time Last Intake of Solids: 20:00 Past Medical History Medical History Abnormal mammogram (Chronic) Adenomatous polyp of colon (Chronic) Anticoagulant long-term use (Chronic) Anxiety Aortic stenosis (Chronic) Asthma (Chronic) Atrial fibrillation, permanent (Chronic) on warfarin, follows with a Dr. Prieto Chronic obstructive pulmonary disease (Chronic) inhalers/nebulizer prn Congestive heart failure (Chronic) hx of Depression (Chronic) Esophageal reflux (Chronic) Hiatal hernia (Chronic) "CT from 2013" Hiatal hernia History of cardioversion Hyperlipidemia (Chronic) Hypertension (Chronic) Hypothyroidism (Chronic) Iron deficiency anemia (Chronic) Mitral regurgitation (Chronic) Obesity (Chronic) Obstructive sleep apnea (Chronic) cpap ordered, pt "took it back" and does not use as ordered On anticoagulant therapy warfarin daily Restrictive lung disease (Chronic) Exercise / Class Metabolic Activity III < 4 Walking/Shop/Light housework Past Family History Family History Father Coronary heart disease Myocardial infarction Mother Hypertension Sister Stroke Other No family history of adverse response to anesthesia Past Surgical History Surgical History History of back surgery History of bilateral cataract extraction History of bilateral tubal ligation History of carpal tunnel surgery of right wrist History of colonoscopy History of esophagogastroduodenoscopy (EGD) History of left knee surgery History of tonsillectomy and adenoidectomy History of tooth extraction S/P kyphoplasty Past Anesthesia History No Hx of Anesthesia Complications and No Family Hx of Anesthesia Complications History of PONV No Hx of PONV and No Hx of Motion Sickness Social History Smoking Status: Never smoker Do You Dip or Chew Tobacco: No Hx Alcohol Use: Yes Alcohol type: other alcohol intake frequency: holidays/special occasions only Alcohol Intake Frequency Comment: [place] Hx Substance Use: No substance use type: does not use Physical Exam Vital Signs Last Vital Signs Temp 36.6 C 07/06/19 07:27 Pulse 73 07/06/19 08:52 Resp 18 07/06/19 07:27 BP 147/88 H 07/06/19 08:52 Pulse Ox 94 07/06/19 07:27 Testing Laboratory Results 07/01/19 11:30 07/01/19 11:30 PT 24.0 Seconds (9.0-12.0) H 07/05/19 09:31 INR 2.5 (0.9-1.1) H 07/05/19 09:31 APTT 33.4 Seconds (21.0-31.0) H 07/05/19 09:31 Blood Type B Positive 07/06/19 11:16 Antibody Screen NEGATIVE 07/06/19 11:16 Electrocardiogram Date: 12/08/18 Findings: + AFIB @ (at 96;poss. infer. wall mi)
[2019-07-06] MEDS: SIMVASTATIN 80 MG TAB PO SCH (20:42)
[2019-07-07] MEDS: LEVOTHYROXINE SODIUM 137 MCG TABLET PO SCH (05:26)
[2019-07-07 05:44] LABS: INR 1.3 (0.9-1.1); Prothrombin Time 13.2 Seconds (9.0-12.0)
[2019-07-07] MEDS ORDERED: CEFAZOLIN 2000MG 2,000 MG/15 ML SYR IV SCH (06:00)
[2019-07-07] MEDS: CALCIUM 600MG + VIT D 400 IU TAB PO SCH (09:32)
[2019-07-07] MEDS: BUDESONIDE/FORMOTEROL FUMARATE 160/4.5 60 PUFFS/INHALER INH SCH (09:32)
[2019-07-07] MEDS: POTASSIUM CHLORIDE 10 MEQ TABCR PO SCH (09:32)
[2019-07-07] MEDS: FUROSEMIDE 40 MG TAB PO SCH (09:33)
[2019-07-07] MEDS: SERTRALINE HCL 50 MG TABLET PO SCH (09:33)
--- NOTE | 2019-07-07 10:49 | History & Physical Bridge Note ---
Date of Service July 07, 2019 History & Physical Bridge Note I have examined the patient, reviewed the History & Physical and in the interval since the performance of the History & Physical I have noted the following changes of clinical significance: no changes noted INR now 1.3. ok to proceed.
[2019-07-07] MEDS ORDERED: fentaNYL citrate 100 MCG/2 ML VIAL IV PRN (11:40)
[2019-07-07] MEDS ORDERED: LABETALOL HCL IV 5 MG/ML 20ML IV PRN (11:40)
[2019-07-07] MEDS ORDERED: FLUMAZENIL 0.1 MG/1 ML 10 ML VIAL IV PRN (11:40)
[2019-07-07] MEDS ORDERED: ONDANSETRON INJ 2 MG/ML 2 ML VIAL IV PRN (11:40)
[2019-07-07] MEDS ORDERED: ePHEDrine sulfate 50 MG/ML AMP IV PRN (11:40)
[2019-07-07] MEDS ORDERED: NALOXONE HCL 0.4 MG/1 ML VIAL/CARP IV PRN (11:40)
[2019-07-07] MEDS ORDERED: PROMETHAZINE HCL 12.5 MG in SODIUM CHLORIDE 0.9% 50 ML IV PRN (11:40)
[2019-07-07] MEDS ORDERED: ATROPINE SULFATE 0.1 MG/ML 10ML SYR IV PRN (11:40)
--- NOTE | 2019-07-07 12:19 | Operative Report ---
PG Post Operative Report Pre & Post Diagnosis Operation Date: 07/05/19 10:45 <No data on this case meets the specified criteria> Operation Date: 07/05/19 12:50 <No data on this case meets the specified criteria> Operation Date: 07/07/19 10:30 <No data on this case meets the specified criteria> pre-op: right breast atypical ductal hyperplasia Post-op: right breast atypical ductal hyperplasia I identified the patient and participated in the time-out.: Yes Procedure Operation Date: 07/05/19 10:45 <No data on this case meets the specified criteria> Operation Date: 07/05/19 12:50 <No data on this case meets the specified criteria> Operation Date: 07/07/19 10:30 Actual Procedures p Right Breast Lumpectomy with Needle Localization(Right) - Manuel Jaramillo DO Surgeon Manuel Jaramillo DO Electric Engine Mechanic porsha Vazquez Estimated Blood Loss 5 Findings Consistent with Post-Op Diagnosis Specimens right breast lump Description of Procedure Prior to coming to the operating room the patient had been to the breast [place] and had a needle localization placed for a right breast lesion. Unfortunately she had failed to stop her Coumadin. She was therefore admitted to the hospital for reversal. She was brought into the operating room today with the needle lo calizer still in place. After successful intubation I cut the needle down close to the skin and then we sterilely prepped and draped the entire upper chest wall and breast as well as the axilla. I began by making a horizontal incision just superior to the entrance point of the needle. I created skin flaps in 360 degrees. We then delivered the end of the needle into the wound itself. Using traction countertraction and cautery I took a cylinder of tissue around the entire guidewire the entire way down to the chest wall. We controlled bleeding as I went. Eventually I was able to remove the entire cylinder of tissue. I marked it such that one long stitch was lateral 2 short stitches were superior and 2 long stitches were posterior. We thoroughly irrigated the wound. I controlled any bleeding points using cautery. There was adequate hemostasis at the end of the procedure. We closed the wound in 3 layers using 2-0 Vicryl for deep layers 3-0 Vicryl for subcutaneous layers and 4-0 Monocryl for skin. Marcaine was injected around it for postoperative analgesia. Benzoin Steri- Strips gauze and tape were used as a dressing. We did x-ray the specimen and I discussed with Dr. Tyson. It appeared as though we had the microcalcifications as well as the biopsy clip. The patient was awakenes, extubated and transferred recovery in stable condition. My physician assistant professor of forestry was present for the entire case. He helped prep the patient. He helped with retraction throughout my dissection as well as with wound closure and dressing placement. I attest to the content of the Intraoperative Record and any orders documented therein. Any exceptions are noted below.
[2019-07-07] MEDS ORDERED: BUPIVACAINE 0.5 % 5 MG/1 ML MPF 30ML VIAL INFIL SCH (12:30)
[2019-07-07] MEDS ORDERED: EPINEPHrine INJ 1 MG/ML AMP INFIL ONE (12:31)
--- NOTE | 2019-07-07 12:52 | Anesthesiology Progress Note ---
Date of Service July 07, 2019 Anesthesia Post Procedure Vital Signs Vital Signs: Temp Pulse Pulse Resp BP Pulse Ox 07/07/19 12:50 89 16 141/84 H 94 07/07/19 12:40 84 16 132/93 97 07/07/19 12:30 88 14 129/77 97 07/07/19 12:22 37.6 C H 98 H 14 133/101 H 95 07/07/19 09:55 36.7 C 77 16 161/92 H 93 07/07/19 07:01 37.2 C 80 16 147/77 H 92 07/06/19 23:15 37.3 C 78 18 125/74 94 07/06/19 15:11 37.7 C H 74 16 105/68 92 Transfer of Care Handoff Completed per policy Notes Mental Status: alert / awake / arousable Patient Amnestic to Procedure: Yes Nausea / Vomiting: adequately controlled Pain: adequately controlled Airway Patency, RR, SpO2: stable & adequate BP & HR: stable & adequate Hydration State: stable & adequate Anesthetic Complications: no major complications apparent
[2019-07-07] MEDS ORDERED: MoRPHine SULFATE 4 MG/ML 1 ML CARP\\VIAL IV PRN (13:14)
[2019-07-07] MEDS ORDERED: HYDROCODONE/ACETAMOPHEN 5/325MG TAB PO PRN (13:14)
[2019-07-07] MEDS: ATENOLOL 25 MG TABLET PO SCH (13:38)
--- NOTE | 2019-07-07 15:33 | Discharge Summary ---
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 Discharge Exam awake/alert Chest (Breasts) Additional Comments: surgical dressings in place, 4x4 gauze + medipore, c/d/i Discharge Data Allergies Allergy/AdvReac Type Severity Reaction Status Date / Time No Known Drug Allergies Allergy Verified 06/24/19 10:58 Procedures Performed Operation Date: 07/05/19 10:45 <No data on this case meets the specified criteria> Operation Date: 07/05/19 12:50 <No data on this case meets the specified criteria> Operation Date: 07/07/19 10:30 Actual Procedures p Right Breast Lumpectomy with Needle Localization(Right) - Manuel Jaramillo, [facility] Course (1) Atypical ductal hyperplasia of right breast: This is a 79y F with a PMH of atypical ductal hyperplasia of the right breast who was planned to undergo right breast lumpectomy on 07/05/[address] Jaramillo. Morning of procedure patient underwent needle localization. When patient was in pre-op her labs were drawn revealing an INR of 2.5. After discussion with the patient she admitted she did not stop her coumadin. It was decided upon to delay surgery, admit the patient, and reverse her INR. On 07/05 and 07/06 she received one dose of 10mg vitamin K. During this time she was able to eat a regular diet without issues and her needle localization site remained c/d/i. The night prior to surgery she was made NPO. INR on the AM 07/07 was 1.3. She was deemed stable to proceed for surgery. She was taken to the OR where she underwent a right breast lumpectomy. The patient tolerated the procedure well, see operative note for full details. Postoperatively she was able to advance her diet as tolerated. She was deemed stable for discharge to home with instructions to resume her coumadin on 07/08/19. She was instructed to follow up in surgery clinic within 1-2 weeks for a post operative check. Total Time Total Time Spent Total Time Spent (In Minutes): 15 Discharge Plan Discharge Items Patient Disposition: Home - Self-Care Reason For Visit: RIGHT ADH; HOSP LOC; NO LYMPH Discharge Diagnosis: right breast lumpectomy Activity: Per Instructions section Lifting: No more than 25 pounds Bathing Comment: may shower starting 07/08/19 Exercise/Sports: Wait until after follow-up appointment Non-emergency contact: Surgeon Call non-emergency contact if: you have any medication questions, your symptoms worsen, your pain is not controlled, your pain is worsening, your pain is unusual for you, your pain is concerning for you, your temperature is above 101.5, your wound has increased redness, your wound has increased drainage and your wound pain has increased Follow-up/Referrals: Suma Isabel MD [Primary Care Provider] - Manuel Jaramillo DO [Surgeon] - (Please call to schedule follow up in clinic within 1-2 weeks. You may call the office sooner if you have any questions or concerns.) Diet: Regular Addtl Attending Provider Instructions: Remove bandage tomorrow to shower, leave steri-strips on until follow-up, you do not need to re-bandage if the wound is dry You can restart coumadin on Thursday Pending Studies at Discharge: No Stand-Alone Forms: My [facility] Medications and DC Order Prescriptions: New hydrocodone-acetaminophen [[place]] 5-325 mg tablet 1 - 2 tab PO Q4H PRN (Reason: pain, initial therapy, max 8 tabs daily) Qty: 15 RF: 0 Continued levothyroxine 137 mcg tablet 137 mcg PO QAM Qty: 90 RF: 3 albuterol sulfate 90 mcg/actuation HFA aerosol inhaler 2 puffs inhalation Q4H PRN (Reason: shortness of breath or wheezing) Qty: 18 RF: 3 calcium carbonate-vitamin D3 600 mg(1,500mg) -400 unit tablet 1 tab PO BID Qty: 180 RF: 3 levalbuterol HCl 1.25 mg/3 mL solution for nebulization 1.25 mg inhalation Q4H PRN (Reason: shortness of breath or wheezing) Qty: 90 RF: 3 potassium chloride 10 mEq capsule, extended release 10 meq PO BID Qty: 180 RF: 3 furosemide [Lasix] 40 mg Tablet 40 mg PO QAM RF: 0 simvastatin [Zocor] 80 mg tablet 80 mg PO HS RF: 0 atenolol 50 mg tablet 75 mg PO QAM RF: 0 Spiriva Respimat 1.25 mcg/actuation mist 2 puffs INH DAILY PRN (Reason: Shortness Of Breath) RF: 0 Symbicort 160-4.5 mcg/actuation HFA aerosol inhaler 2 puffs inhalation BID RF: 0 sertraline [Zoloft] 100 mg tablet 150 mg PO QAM RF: 0 Discontinued warfarin 5 mg tablet 0.5 mg PO 4XWK RF: 0 warfarin [Coumadin] 5 mg tablet 7.5 mg PO 3XWK RF: 0 Discharge Orders: Discharge Order (Routine); Ordered 07/07/19 Ordered By: Terell Vazquez Jr Admission Data Admit Date/Time: 07/05/19 15:42 Attending Provider: Manuel Jaramillo Admit Provider: Manuel Jaramillo Primary Care Provider: Suma Isabel
--- NOTE | 2019-07-08 14:50 | Mammography Report ---
NEEDLE LOCALIZATION RIGHT BREAST: 07/05/2019 CLINICAL HISTORY: 79-year-old woman with biopsy-proven focal atypical ductal hyperplasia involving bi opsied calcifications in the 9:00 posterior right breast. Patient presents for preoperative wire loca lization prior to excisional biopsy. COMPARISON: Right breast stereotactic biopsy and post procedure mammograms 05/25/2019, diagnostic mamm ograms 05/12/2019, 04/19/2018, screening mammograms 04/08/2018. PATIENT CONSENT: The risks of the procedure were explained to the patient and informed consent was ob tained. PROCEDURE DESCRIPTION: Post procedure mammograms performed after the stereotactic biopsy on 05/25/2019 were reviewed. The rectangular or buckle-shaped biopsy marker in the upper outer posterior right br east is the intended target for localization. With the patient in the seated position, the right davide ast was placed in lateralmedial compression. A tomosynthesis property specialist view was obtained which demonstr ates the biopsy marker within the localization window of an alphanumeric grid. The metallic biopsy m arker and residual calcifications in the 9:00 to 10:00 posterior right breast were targeted. The ski n of the lateral right breast was cleansed with alcohol. 1% buffered Lidocaine without epinephrine w as administered as local anesthesia. A 7.5cm Wilson II needle and wire combination was inserted into the breast. Optimal positioning was confirmed and the wire was locked in place, leaving both the nee dle and wire within the breast, as per surgeon's preference. The entire procedure including approach and needle length were discussed with the operating surgeon prior to surgery. The patient tolerated the procedure well and there was no immediate complication. She was sent to the operating room in s atisfactory condition. A specimen radiograph was obtained which demonstrates the metallic biopsy marker, localization wire a nd groupings of calcifications as well as postbiopsy hematoma within the specimen. These findings ar e compatible with successful preoperative localization and subsequent surgical excision. Final surgi kirsten pathology is pending. IMPRESSION: NEEDLE LOCALIZATION Status post right breast preoperative wire localization for biopsy-proven atypia in the 9:00 posterio r right breast. The imaged specimen includes the intended abnormalities. Final surgical pathology i s pending. Dayanna Tyson M.D. ay/:07/08/2019 12:13:28 Ladle Patcher: Nery Severino, [facility]; Rayray Campos, RT(R)(M), [facility]
== END 2019-07-07 16:16 | disposition home or self-care (01) | DRG 585 ==
LOC: ASU 08:00 → 3W 15:42